=== PATIENT | male | born 1970 | race Caucasian/White ===

== ENCOUNTER 2021-10-05 13:18 | Emergency (ER) | payer OTHER, SELFPAY ==
[2021-10-05 13:22] VITALS: BP 108/72; PULSE 78; RESP 20; TEMP 36.8; O2SAT 97
--- NOTE | 2021-10-05 14:24 | ED.EYEPROB ---
HPI - Eye Problem General Chief complaint: Eye Problems Stated complaint: Eye Problem Time Seen by Provider: 10/05/21 14:18 Source: patient and RN notes reviewed Mode of arrival: ambulatory Limitations: no limitations History of Present Illness HPI Narrative: Patient presents today complaining of right thigh upper eyelid swelling x3 days and believes he has a stye. Denies vision changes or drainage. He currently rates his pain 2/10, which increases with touching the area. He has flushed the area with water. Does not wear glasses or contacts. MD chief complaint: other (Eyelid swelling) Related Data Home Medications Medication Instructions Recorded Confirmed empagliflozin [Jardiance] 10 mg PO DAILY 10/05/21 10/05/21 famotidine 40 mg PO DAILY 10/05/21 10/05/21 lisinopril 5 mg PO DAILY 10/05/21 10/05/21 metformin 500 mg PO BID 10/05/21 10/05/21 Allergies Allergy/AdvReac Type Severity Reaction Status Date / Time No Known Allergies Allergy Unknown Verified 10/05/21 13:36 Review of Systems Review of Systems: CONSTITUTIONAL: Denies body aches, fever, chills, or sweats. EYES: Denies visual changes, redness, or discharge.+ Right upper eyelid redness and swelling ENT: Denies rhinorrhea, congestion, sore throat, or otalgia. CARDIOVASCULAR: Denies chest pain, palpitations, or edema. RESPIRATORY: Denies cough or dyspnea. GASTROINTESTINAL: Denies abdominal pain, nausea, vomiting, or diarrhea. GENITOURINARY: Denies dysuria or hematuria. SKIN: Denies rash, itching, or wounds. MUSCULOSKELETAL: Denies back pain, joint pain, or myalgia. NEUROLOGIC: Denies headache, numbness, tingling, or weakness. PSYCH: Denies depression or anxiety. FORMERLY [facility] Past Medical History Medical History (Updated 10/05/21 @ 14:29 by Katie Banks, TECHNICAL INSTRUCTOR COURSE DEVELOPER, ) Diabetes Hypertension Comments At time of signature, I have reviewed and agree with nursing past medical, surgical, social and family history unless otherwise noted. Please see nursing chart for further information. There is no relevant family history pertinent to the presenting complaint Exam Narrative: GENERAL: Well-appearing, well-nourished, and in no acute distress. HEAD: Normocephalic, atraumatic. EYES: EOMI. PERRL. Conjunctivae normal. Right upper eyelid with mild swelling and erythema. Inside of the eyelid shows a small nodule consistent with stye. Right lower eyelid normal. Lashes normal. Left eye normal. ENT: Mucous membranes pink and moist. NECK: Normal AROM. CHEST: No respiratory distress. EXTREMITIES: Normal range of motion. SKIN: Warm, dry, no rash. Capillary refill normal. Normal skin turgor. NEURO: No focal deficits. Alert and oriented x3. Gait steady. PSYCH: Normal affect. No signs of depression or anxiety. Course Course Level of Care: Express Care Visit Vital Signs Vital signs: Vital Signs Temperature 98.2 F 10/05/21 13:22 Pulse Rate 78 10/05/21 13:22 Respiratory Rate 20 10/05/21 13:22 Blood Pressure 108/72 10/05/21 13:22 Pulse Oximetry 97 10/05/21 13:22 Temperature 98.2 F 10/05/21 13:22 Pulse Rate 78 10/05/21 13:22 Respiratory Rate 20 10/05/21 13:22 Blood Pressure 108/72 10/05/21 13:22 Pulse Oximetry 97 10/05/21 13:22 Reviewed MDM - Eye Problem Differential Diagnosis Differential diagnosis: Likely corneal abrasion, conjunctivitis and periorbital cellulitis Critical Care Time Critical Care Time Critical Care Time: No Discharge Plan Discharge Clinical Impression: Hordeolum internum of right eye Qualifiers: Eyelid: upper Qualified Code(s): H00.021 - Hordeolum internum right upper eyelid Patient Disposition: Home, Self-Care Condition: Stable Instructions: Laya (ED) Additional Instructions: Use antibiotic eyedrops as prescribed. Use warm compresses to the eye to possibly facilitate drainage. Follow-up with an eye doctor towards the end of the week if symptoms are not improving, or sooner if symptom
== END 2021-10-05 14:33 | disposition home or self-care (01) ==
PROVIDERS: Emergency Provider Nurse Practitioner; PCP Nurse Practitioner Family
DX: H00.021 Hordeolum internum right upper eyelid (principal); E11.9 Type 2 diabetes mellitus without complications; I10 Essential (primary) hypertension
CPT/HCPCS: 99213; G0463

== ENCOUNTER 2022-02-12 13:51 | Outpatient (CLI) | payer OTHER, SELFPAY ==
--- NOTE | ~2022-02-12 | MM_ITS ---
EXAMINATION: MM diagnostic mammo BI HISTORY: Gynecomastia TECHNIQUE: MLO, CC and rotated lateral CC views of each breast.. CAD analysis was submitted and inter preted. COMPARISON: None BREAST PARENCHYMAL COMPOSITION: There are scattered areas of fibroglandular density. FINDINGS: Mild bilateral gynecomastia, without evidence of suspicious mass, architectural distortion, malignant calcification, skin thickening or retraction. IMPRESSION: 1. Mild bilateral gynecomastia 2. No recommendations BI-RADS Category 2: Benign Reviewed, dictated and finalized at location A.
== END 2022-02-12 13:52 | disposition home or self-care (01) ==
LOC: ANHIMG 13:52
PROVIDERS: PCP Nurse Practitioner Family; Visit Provider Internal Medicine Endocrinology, Diabetes & Metabolism
DX: N62 Hypertrophy of breast (principal)
CPT/HCPCS: 77066

== ENCOUNTER 2022-10-08 08:07 | Outpatient (CLI) | payer OTHER, SELFPAY ==
[2022-10-08 08:23] LABS: Hematocrit 45.5 % (42.0-52.0); Hemoglobin 14.6 g/dL (14.0-18.0); Mean Corpuscular HGB Conc 32.1 g/dl (32-36); Mean Corpuscular Hemoglobin 27.2 pg (26-34); Mean Corpuscular Volume 84.7 fl (80-100); Mean Platelet Volume 9.7 fl (7.4-10.4); Platelet Count Result 299 k/mm3 (150-375); Red Blood Count 5.37 M/mm3 (4.6-6.20); Red Cell Distribution Width 15.4 % (11.5-14.5); White Blood Count 12.7 K/mm3 (4.5-10.0)
[2022-10-08 08:34] LABS: Alanine Aminotransferase 21 U/L (6-50); Alkaline Phosphatase 85 U/L (38-126); Anion Gap 7 mmol/L (8-16); Aspartate Amino Transferase 21 U/L (17-59); Bilirubin,Total 0.8 mg/dL (0.2-1.3); Blood Urea Nitrogen 16 mg/dL (9-20); Calcium 8.7 mg/dL (8.4-10.2); Carbon Dioxide 28 mmol/L (22-30); Chloride 103 mmol/L (98-107); Cholesterol 169 mg/dL (0-200); Estimated Glomerular Filt Rate > 60; Glucose 113 mg/dL (65-110); HDL Direct 30 mg/dL; Potassium 4.3 mmol/L (3.4-5.0); Sodium 138 mmol/L (137-145); Triglycerides 163 mg/dL (<150)
[2022-10-08 08:44] LABS: LDL Cholesterol Direct 107 mg/dL
[2022-10-08 09:03] LABS: Prostate Specific Antigen 0.4 ng/mL (< OR = 4.0)
[2022-10-12 14:41] LABS: Sex Hormone Binding Globulin 8 nmol/L (10-50)
[2022-10-13 11:28] LABS: Adrenocorticotropic Hormone 13 pg/mL (6-50)
== END 2022-10-08 08:08 | disposition home or self-care (01) ==
LOC: ANHLAB 08:09
PROVIDERS: Visit Provider Internal Medicine Endocrinology, Diabetes & Metabolism
DX: E29.1 Testicular hypofunction (principal)
CPT/HCPCS: 36415; 80053; 80061; 82024; 84153; 84270; 85027; G0103

== ENCOUNTER 2022-11-02 08:43 | Emergency (ER) | payer OTHER, SELFPAY ==
[2022-11-02 08:48] VITALS: BP 125/72; PULSE 71; RESP 20; TEMP 37; O2SAT 97
--- NOTE | 2022-11-02 08:55 | ED.SKABFB ---
HPI - Skin/Abscess/Foreign Bdy General Chief complaint: Skin/Abscess/Foreign Body Stated complaint: left side of neck bite Time Seen by Provider: 11/02/22 08:55 Source: patient Mode of arrival: ambulatory Limitations: no limitations History of Present Illness HPI narrative: Patient is a 51-year-old male who presents with of bite to left neck that have been Tuesday. Unsure what he was bit by. Patient reports mild itching to bite but has not used any creams. Patient was shaving this morning and noticed lymph node by by was swollen. Patient states it was harder this morning than it is at the present time. Patient takes daily Flonase but no other allergy medicine. Patient also reports mild sinus pressure. Denies any fever, chills, headache, joint pain, nausea, vomiting, diarrhea. Related Data Home Medications Medication Instructions Recorded Confirmed empagliflozin 10 mg tablet 10 mg PO DAILY 10/05/21 11/02/22 (Jardiance) lisinopril 5 mg tablet 5 mg PO DAILY 10/05/21 11/02/22 metformin 500 mg tablet 500 mg PO BID 10/05/21 11/02/22 cholecalciferol (vitamin D3) 25 25 mcg PO DAILY 01/21/22 11/02/22 mcg (1,000 unit) capsule melatonin 5 mg capsule 5 mg PO QPM PRN Sleep 01/21/22 11/02/22 multivitamin (Daily Multi-Vitamin 1 tablet PO DAILY 01/21/22 11/02/22 tablet) venlafaxine 37.5 mg tablet 37.5 mg PO DAILY 01/21/22 11/02/22 Allergies Allergy/AdvReac Type Severity Reaction Status Date / Time No Known Allergies Allergy Unknown Verified 11/02/22 08:59 Review of Systems Review of Systems: All systems reviewed & are unremarkable except as noted in HPI and below Constitutional: Constitutional: Denies body ache(s), Denies chills, Denies fatigue, Denies fever(s), Denies headache(s), Denies malaise and Denies weakness Eyes: Eyes: Denies blurry vision, Denies irritation and Denies loss of vision ENT: Denies otalgia, Denies headache(s), Denies nasal discharge, Denies sinus pain and Denies sore throat Cardiovascular: Cardiovascular: Denies chest pain, Denies irregular heart rhythm and Denies dyspnea Respiratory: Respiratory: Denies dyspnea Gastrointestinal: Gastrointestinal: Denies abdominal pain, Denies melena, Denies hematochezia, Denies diarrhea, Denies nausea and Denies vomiting Musculoskeletal: Musculoskeletal: Denies back pain, Denies myalgias and Denies arthralgias Integumentary/Breasts: Skin/Breast: Reports pruritus, Reports lesions and Denies rash Neurologic: Denies headache(s), Denies loss of vision and Denies weakness Psychiatric: Psychiatric: Reports no additional psychiatric complaints Endocrine: Endocrine: Denies fatigue Hematologic/Lymphatic: Hematologic/Lymphatic: Reports lymphadenopathy PMFSH Past Medical History Medical History Gynecomastia Hypertension Hypogonadism in male Testicular torsion Type 2 diabetes mellitus Surgical History Surgical History History of cholecystectomy History of nasal surgery Social History Social History Smoking status: Never smoker Alcohol intake: current Alcohol use details: Rarely Special occasions Substance use: never Comments At time of signature, agree with nursing past medical, surgical, social and family history. There is no relevant family history pertinent to the presenting complaint. Exam Const: General: cooperative, healthy appearing, comfortable, no acute distress and well nourished Nutritional Appearance: well nourished Orientation/consciousness: patient oriented x3 Limitations: no limitations HENMT: Head: normal to inspection, normocephalic and atraumatic Ears: hearing grossly normal bilaterally and external ears normal Face/Nose/Sinus: Normal external nose present, normal facial exam and face symmetric Face and sinus: normal facial exam and fac
== END 2022-11-02 09:05 | disposition home or self-care (01) ==
PROVIDERS: Emergency Provider Nurse Practitioner Family; PCP Nurse Practitioner Family
DX: S10.86XA Insect bite of other specified part of neck, initial encounter (principal); R59.0 Localized enlarged lymph nodes; I10 Essential (primary) hypertension; E11.9 Type 2 diabetes mellitus without complications; W57.XXXA Bitten or stung by nonvenomous insect and other nonvenomous arthropods, initial encounter
CPT/HCPCS: 99211; G0463

== ENCOUNTER 2023-01-20 08:07 | Outpatient (CLI) | payer OTHER, SELFPAY ==
[2023-01-20 11:53] LABS: Iron 64 ug/dL (49-181)
[2023-01-20 12:02] LABS: Percent Iron Saturation 18 % (20-50)
[2023-01-20 12:21] LABS: Cortisol Baseline 9.25 ug/dL
[2023-01-24 04:21] LABS: Sex Hormone Binding Globulin 13 nmol/L (10-50)
[2023-01-24 15:36] LABS: FSH 8.9; LH 4.8
[2023-01-25 08:22] LABS: Testosterone Free 16.4
[2023-01-25 10:43] LABS: Testosterone Total 67
[2023-01-27 22:58] LABS: Estradiol, Ultrasensitive 37 pg/mL (< OR = 29)
== END 2023-01-20 08:08 | disposition home or self-care (01) ==
PROVIDERS: PCP Nurse Practitioner Family; Visit Provider Internal Medicine Endocrinology, Diabetes & Metabolism
DX: E11.9 Type 2 diabetes mellitus without complications (principal); E29.1 Testicular hypofunction; R53.83 Other fatigue; Z68.43 Body mass index [BMI] 50.0-59.9, adult
CPT/HCPCS: 36415; 82533; 82670; 82728; 83001; 83002; 83540; 83550; 84270; 84402; 84403

== ENCOUNTER 2023-03-08 12:36 | Outpatient (CLI) | payer OTHER, SELFPAY ==
--- NOTE | ~2023-03-08 | MR_ITS ---
EXAMINATION: MR pituitary wo/w con DATE: 03/08/2023 13:38 INDICATION: Pituitary adenoma. Low testosterone. TECHNIQUE: Magnetic resonance imaging (MRI) of the brain and brainstem was performed without and with 20 mL MultiHance intravenous contrast. COMPARISON: None. FINDINGS: The pituitary is normal in size with height of 4 mm and concave superior margin. There is n o intracranial hemorrhage, acute infarction, or abnormal intracranial mass lesion. There are scattere d areas of nonspecific increased T2-weighted signal intensity in the cerebral white matter, which is within normal limits for the patient's age. The ventricles are normal in size. There is near complete opacification of left maxillary sinus with material extending into the nasal cavity. The mastoid air cells are normal. The orbits are normal. IMPRESSION: 1. Normal aging brain. Normal pituitary. Reviewed, dictated and finalized at location E.
== END 2023-03-08 12:37 | disposition home or self-care (01) ==
PROVIDERS: PCP Nurse Practitioner Family; Visit Provider Internal Medicine Endocrinology, Diabetes & Metabolism
DX: E29.1 Testicular hypofunction (principal)
CPT/HCPCS: 70553; A9577

== ENCOUNTER 2023-03-25 15:27 | Emergency (ER) | payer OTHER, SELFPAY ==
[2023-03-25 15:31] VITALS: BP 117/74; PULSE 76; RESP 16; TEMP 36.6; O2SAT 98
--- NOTE | 2023-03-25 15:34 | ED.SKABFB ---
HPI - Skin/Abscess/Foreign Bdy General Chief complaint: Skin/Abscess/Foreign Body Stated complaint: rash on legs Source: patient and RN notes reviewed History of Present Illness HPI narrative: 52 yo M presents to urgent care with complaints of an itchy rash to his bilateral lower extremities x 3-4 days. Pt states the itchiness is worse on the right lower leg. Pt states he also noticed 2 spots on his abdomen today. Denies any fevers, chills, chest pain, SOB, vomiting, new medications, detergents, or soaps. Related Data Home Medications Medication Instructions Recorded Confirmed lisinopril 5 mg tablet 5 mg PO DAILY 10/05/21 03/25/23 cholecalciferol (vitamin D3) 25 25 mcg PO DAILY 01/21/22 03/25/23 mcg (1,000 unit) capsule melatonin 5 mg capsule 5 mg PO QPM PRN Sleep 01/21/22 03/25/23 multivitamin (Daily Multi-Vitamin 1 tablet PO DAILY 01/21/22 03/25/23 tablet) venlafaxine 37.5 mg tablet 37.5 mg PO DAILY 01/21/22 03/25/23 Allergies Allergy/AdvReac Type Severity Reaction Status Date / Time No Known Allergies Allergy Unknown Verified 03/25/23 15:39 Review of Systems Review of Systems: CONSTITUTIONAL: Denies fever, chills, or sweats. EYES: Denies visual changes, redness, or discharge. ENT: Denies otalgia and sore throat CARDIOVASCULAR: Denies chest pain, palpitations, or edema. RESPIRATORY: Denies cough or dyspnea. GASTROINTESTINAL: Denies abdominal pain, nausea, vomiting, or diarrhea. GENITOURINARY: Denies dysuria or hematuria. SKIN: itchy rash MUSCULOSKELETAL: Denies back pain, joint pain, or myalgia. NEUROLOGIC: Denies headache, numbness, or weakness. Pertinent positives per HPI. FOR[facility]LY [facility], [facility] Past Medical History Medical History Gynecomastia Hypertension Hypogonadism in male Testicular torsion Type 2 diabetes mellitus Surgical History Surgical History History of cholecystectomy History of nasal surgery Social History Social History Smoking status: Never smoker Alcohol intake: current Alcohol use details: Rarely Special occasions Substance use: never Comments At the time of my signature, I reviewed and agree with the nursing past medical, surgical, social, and family history. There is no relevant family history pertinent to the patient complaint. Exam Narrative: GENERAL: This is a well-nourished, well-developed patient, in no apparent distress. HEAD: normocephalic, atraumatic. EYES: Sclera clear/white. Vision is grossly intact. EARS: External ears normal, auditory canals clear and without drainage. Hearing grossly intact. NOSE: External nose normal with no obvious nasal discharge, nares without redness, no rhinorrhea. THROAT: Mucous membranes moist, posterior pharynx clear. NECK: Neck supple, non-tender without lymphadenopathy, masses or thyromegaly. CARDIOVASCULAR: Regular rate RESPIRATORY: No respiratory distress GASTROINTESTINAL: Abdomen soft, non-tender, nondistended. Bowel sounds are active. No hepato-splenomegaly, or palpable masses. No guarding. SKIN: multiple, fine, erythemic, papules to bilateral lower legs and ankles. Papules vary in size and the two larger ones on sarina right calf have mild erythema surrounding them. No exudate noted. no streaking. NEURO: awake, alert, and oriented to person, place and time. There were no obvious focal neurologic abnormalities. EXTREMITIES: No clubbing, cyanosis, or edema. No joint tenderness, effusion, or edema noted. Course Course Level of Care: Express Care Visit Vital Signs Vital signs: Vital Signs Temperature 97.9 F 03/25/23 15:31 Pulse Rate 76 03/25/23 15:31 Respiratory Rate 16 03/25/23 15:31 Blood Pressure 117/74 03/25/23 15:31 Pulse Oximetry 98 03/25/23 15:31 Oxygen Delivery Room Air 03/25/23 15:31 Temperature 97.9 F
[2023-03-25 15:40] VITALS: BP 117/74; PULSE 76; RESP 16; TEMP 36.6; O2SAT 98
== END 2023-03-25 15:55 | disposition home or self-care (01) ==
PROVIDERS: Emergency Provider Nurse Practitioner Family; PCP Nurse Practitioner Family
DX: L30.9 Dermatitis, unspecified (principal); I10 Essential (primary) hypertension; E11.9 Type 2 diabetes mellitus without complications
CPT/HCPCS: 99213; G0463

== ENCOUNTER 2023-05-23 16:45 | Emergency (ER) | payer OTHER, SELFPAY ==
[2023-05-23 17:04] VITALS: BP 122/75; PULSE 74; RESP 16; TEMP 37.2; O2SAT 97
--- NOTE | 2023-05-23 17:17 | ED.GENADULT ---
HPI - General Adult General Chief complaint: Upper Respiratory Infection Stated complaint: Sinus Infection, Earache Source: patient, RN notes reviewed and old records reviewed Mode of arrival: ambulatory Limitations: no limitations History of Present Illness HPI narrative: 52-year-old male patient presents to Express Care with complaint of left cited sinus congestion, sinus pain, left-sided sinus swelling, left ear pain this started 5 days ago. patient states now has blood tinged nasal drainage. Patient taking [id number] medications with no relief. Patient denies cough, dizziness, weakness, vomiting, chest pain. MD complaint: Sinus congestion Onset (ago): day(s) (5) Related Data Home Medications Medication Instructions Recorded Confirmed lisinopril 5 mg tablet 5 mg PO DAILY 10/05/21 03/25/23 cholecalciferol (vitamin D3) 25 25 mcg PO DAILY 01/21/22 03/25/23 mcg (1,000 unit) capsule melatonin 5 mg capsule 5 mg PO QPM PRN Sleep 01/21/22 03/25/23 multivitamin (Daily Multi-Vitamin 1 tablet PO DAILY 01/21/22 03/25/23 tablet) venlafaxine 37.5 mg tablet 37.5 mg PO DAILY 01/21/22 03/25/23 Allergies Allergy/AdvReac Type Severity Reaction Status Date / Time No Known Allergies Allergy Unknown Verified 05/23/23 16:58 Review of Systems Constitutional: Constitutional: Reports no additional constitutional complaints, Denies body ache(s), Denies chills, Denies fatigue, Denies fever(s) and Reports headache(s) Eyes: Eyes: Reports no additional eye complaints and Denies blurry vision ENT: Reports system reviewed and no additional complaints, except as documented, Denies vertigo, Denies dizziness, Denies ear discharge, Reports otalgia, Denies facial pain, Denies headache(s), Reports nasal congestion, Reports nasal discharge, Reports sinus pain, Reports sinus pressure and Denies sore throat Cardiovascular: Cardiovascular: Reports no additional cardiovascular complaints, Denies chest pain, Denies chest pain at rest, Denies rapid heart rate and Denies dyspnea Respiratory: Respiratory: Reports no additional respiratory complaints, Denies chest congestion, Denies cough, Denies pain on inspiration, Denies pain with cough and Denies dyspnea Gastrointestinal: Gastrointestinal: Denies abdominal pain, Denies diarrhea, Denies nausea and Denies vomiting Integumentary/Breasts: Skin/Breast: Denies rash Neurologic: Reports system reviewed and no additional complaints, except as documented, Denies vertigo, Denies dizziness and Denies headache(s) Endocrine: Endocrine: Denies fatigue PMFSH Past Medical History Medical History Gynecomastia Hypertension Hypogonadism in male Testicular torsion Type 2 diabetes mellitus Surgical History Surgical History History of cholecystectomy History of nasal surgery Social History Social History Smoking status: Never smoker Alcohol intake: current Alcohol use details: Rarely Special occasions Substance use: never Comments At the time of my signature, I reviewed and agree with the nursing past medical, surgical, social, and family history. There is no relevant family history pertinent to the patient complaint. Exam Const: General: cooperative, healthy appearing, no acute distress and well nourished Nutritional Appearance: well nourished Orientation/consciousness: patient oriented x3 Limitations: no limitations HENMT: Head: normal to inspection and normocephalic Ears: external ears normal, TM's normal bilaterally, mastoids normal and Abnormal EAC present Face/Nose/Sinus: Normal nasal mucous membranes and turbinates present ( right-side), Abnormal mucous membranes and turbinates present boggy on the left and erythematous on the left, normal facial exam and Facial tenderness on exam of face and sinuses ( left maxillary si
== END 2023-05-23 17:33 | disposition home or self-care (01) ==
PROVIDERS: Emergency Provider Registered Nurse; PCP Nurse Practitioner Family
DX: J01.90 Acute sinusitis, unspecified (principal); B96.89 Other specified bacterial agents as the cause of diseases classified elsewhere; I10 Essential (primary) hypertension; E11.9 Type 2 diabetes mellitus without complications
CPT/HCPCS: 99213; G0463

== ENCOUNTER 2023-05-26 07:23 | Outpatient (CLI) | payer OTHER, SELFPAY ==
[2023-05-26 08:05] LABS: Hematocrit 45.1 % (42.0-52.0)
[2023-05-30 12:43] LABS: Testosterone Total 301 ng/dL (250-1100)
[2023-05-30 15:12] LABS: Testosterone Free 78.8 pg/mL (46.0-224.0)
== END 2023-05-26 07:24 | disposition home or self-care (01) ==
LOC: ANHLAB 07:25
PROVIDERS: PCP Nurse Practitioner Family; Visit Provider Internal Medicine Endocrinology, Diabetes & Metabolism
DX: N62 Hypertrophy of breast (principal)
CPT/HCPCS: 36415; 84402; 84403; 85014; 85018

== ENCOUNTER 2023-11-10 07:56 | Outpatient (CLI) | payer OTHER, SELFPAY ==
[2023-11-10 11:18] LABS: Iron 78 ug/dL (49-181)
[2023-11-10 11:28] LABS: Percent Iron Saturation 21 % (20-50)
[2023-11-10 11:56] LABS: Transferrin 259 mg/dL (206-381)
[2023-11-10 12:19] LABS: Prostate Specific Antigen 0.7 ng/mL (< OR = 4.0)
[2023-11-11 13:03] LABS: Microalbumin Urine Random 7.3 mg/L (0-16.7)
[2023-11-11 13:14] LABS: Creatinine Urine 134.1 mg/dL; MALB Creatinine Ratio 5.4 mg/g (0-30)
[2023-11-13 22:44] LABS: Testosterone Total 280 ng/dL (250-1100)
[2023-11-14 17:28] LABS: Testosterone Free 76.8 pg/mL (46.0-224.0)
== END 2023-11-10 07:57 | disposition home or self-care (01) ==
LOC: ANHLAB 07:57
PROVIDERS: PCP Nurse Practitioner Family; Visit Provider Internal Medicine Endocrinology, Diabetes & Metabolism
DX: R79.0 Abnormal level of blood mineral (principal); E29.1 Testicular hypofunction; E11.9 Type 2 diabetes mellitus without complications
CPT/HCPCS: 36415; 82043; 83540; 83550; 84153; 84402; 84403; 84466; G0103

== ENCOUNTER 2024-08-16 07:50 | Outpatient (CLI) | payer OTHER, SELFPAY ==
--- OUTSIDE RECORDS SUMMARY | 2024-08-16 07:54 | XMS_ITS | Clinical Summary ---
Author Organization [facility] Address [address] [place] [address] Care Team Providers Care Card Tender Name Role Phone Brielle Garcia JOYCELYN Primary Care Provider [phone] Source Comments [facility],non-owned Affiliates and Associated Physician Practices is amultiple site organization consisting of ambulatory clinics and hospital sitesin [place], [place], [place] and [place]. This disclosure is being madepursuant to the Care Everywhere program and may not contain all information available regarding this patient. Last updated 18.[facility] Allergies No known active allergies Medications * Be aware that medications may not be up to date on this document. Alwaysverify current medications with the patient. Medication Sig Dispensed Refills Start Date End Date Status melatonin 3 MG tablet Take 3 mg by mouth at bedtime Active raNITIdine (ZANTAC) 75 MG tablet Take 75 mg by mouth at bedtime Active Blood Glucose Monitoring Suppl (ONE TOUCH ULTRA 2) w/Device KIT Use 1 kit as directed 1 kit 10/03/2018 Active blood glucose test strip Use 1 strip 2 times daily 100 strip 11 10/03/2018 Active metFORMIN (GLUCOPHAGE) 500 MG tablet Take 1 tablet by mouth 2 times daily with morning and evening meal 180 tablet 4 10/03/2018 Active lisinopril (PRINIVIL;ZESTRIL) 5 MG tablet Take 5 mg by mouth once daily Active Active Problems Problem Noted Date Diagnosed Date S/P laparoscopic cholecystectomy 10/19/2018 Resolved Problems Problem Noted Date Diagnosed Date Resolved Date Acute pancreatitis 09/22/2018 9 Family History Medical History Relation Name Comments Diabetes - Type 2 Father Gout Father Brain Tumor Mother Benign Relation Name Status Comments Father Mother Social History Tobacco Use Types Packs/Day Years Used Date Smoking Tobacco: Never Smokeless Tobacco: Never Tobacco Cessation:Counseling Given: No Alcohol Use Standard Drinks/Week Comments Yes 1 (1 standard drink = 0.6 oz pur e alcohol) 1 drink every six months Sex and Gender Information Value Date Recorded Sex Assigned at Not on file Gender Identity Not on file Sexual Orientation Not on file Last Filed Vital Signs Vital Sign Reading Time Taken Comments Blood Pressure 154/91 10/18/2018 2:27 PM CDT Pulse 98 10/18/2018 2:27 PM CDT Temperature 36.4 C (97.6 F) 10/18/2018 2:27 PM CDT Respiratory Rate 18 10/03/2018 11:19 AM CDT Oxygen Saturation 95% 10/18/2018 2:27 PM CDT Inhaled Oxygen Concentration 21% 09/27/2018 3 :40 PM CDT Weight 195.5 kg (431 lb) 10/18/2018 2:27 PM CDT Height 182.9 cm (6') 10/18/2018 2:27 PM CDT Body Mass Index 58.45 10/18/2018 2:27 PM CDT Plan of Treatment Health Maintenance Due Date Last Done Comments COLOGUARD (AGES 45-75) - COLON CA SCREENING 1970 COLON MONITORING 1970 COLONOSCOPY - COLON CA SCREENING 1970 CT COLONOGRAPHY - COLON CA SCREENING 1970 Colorectal Cancer Screening 1970 FIT - COLON CA SCREENING 1970 FLEX SIG - COLON CA SCREENING 1970 LIPID TESTING 1970 HIV SCREENING 1985 HEPATITIS C SCREENING 11/16/1988 DTAP/TDAP/TD VACCINES (1 - Tdap) 1989 HEPATITIS B VACCINE (1 of 3 - 19+ 3-dose series) 1989 PNEUMOCOCCAL VACCINE 50+ (1 of 1 - PCV) 2020 ZOSTER VACCINE (1 of 2) 2020 SCREENING FOR DIABETES 10/03/2021 9, 10/03/2018, 10/03/2018, Additional history exists COVID-19 VACCINE (1 - 2023- season) 2024 INFLUENZA VACCINE (#1) 2024 DEPRESSION SCREENING 06/06/2024 HIB VACCINE Aged Out No longer eligi ble based on patient's age to complete this topic HPV VACCINE Aged Out No longer eligi ble based on patient's age to complete this topic MENINGOCOCCAL (Group B) VACCINE SHARED DECISION-MAKING Aged Out No longer eligible based on patient's age to complete this topic MENINGOCOCCAL GROUPS A/C/Y/W VACCINE Aged Out No longer eligible based on patient's age to complete this topic PNEUMOCOCCAL VACCINE Aged Out No long er eligible based on patient's age to complete this topic Procedures Procedure Name Priority Date/Time Associated Diagnosis Comments BASIC METABOLIC PANEL (CALCIUM TOTAL) Routine 10/03/2018 5:29 AM CDT from Last 3 Months or Most Recently Relevant to Health Maintenance Results * (ABNORMAL) BASIC METABOLIC PANEL (CALCIUM TOTAL) (10/03/2018 5:29 AM CDT) BUN 8 7 - 26 mg/dL 10/03/2018 6:12 AM [facility] Creatinine 0.8 0.6 - 1.2 mg/dL 10/03/2018 6:12 AM [facility] Sodium 138 136 - 145 mmol/L 10/03/2018 6:12 AM [facility] Potassium 3.9 3.5 - 4.5 mmol/L 10/03/2018 6:12 AM [facility] Chloride 101 98 - 107 mmol/L 10/03/2018 6:12 AM [facility] CO2 27 22 - 29 mmol/L 10/03/2018 6:12 AM [facility] Glucose 156(H) 70 - 115 mg/dL 10/03/2018 6:12 AM [facility] Calcium 9.0 8.4 - 10.2 mg/dL 10/03/2018 6:12 AM [facility] Anion Gap 14 8 - 18 10/03/2018 6:12 AM [facility] BUN/Creatinine Ratio 10 7 - 23 10/03/2018 6:12 AM [facility] Osmolality Calculated 288 270 - 300 mOsm/kg 10/03/2018 6:12 AM [facility] eGFR >60 >60 mL/min/1.7 3 m2 10/03/2018 6:12 AM CDT [facility] Blood BLOOD SPECIMEN / Unknown Lab Venipuncture / Unknown 10/03/2018 5:29 AM CDT 10/03/2018 5:54 AM CDT Loco Burroughs MD LAB - CHEMISTRY EILEEN Bourgeois Organization Address City/State/ZIP Co de Phone Number [facility] [address] [phone] from Last 3 Months or Most Recently Relevant to Health Maintenance Advance Directives * Full Code (Latest Code Status on File) Date Activated Date Inactivated Comments 09/22/2018 9:05 PM 10/03/2018 2:50 PM * Full Code Date Activated Date Inactivated Comments 09/22/2018 9:02 PM 09/22/2018 9:05 PM Care Teams Card Tender Relationship Specialty Start Date End Date Brielle Garcia APRN-CNP [address] [place] [address] PCP - General Nurse Practitioner Family 09/22/18
--- OUTSIDE RECORDS SUMMARY | 2024-08-16 07:54 | XMS_ITS | Clinical Summary ---
Author Organization [facility] Address [address] [place] [address] Phone Care Team Providers Care Audio Visual Tech Name Role Phone Garcia Brielle VO CNP Primary Care Provider [phone] [phone] Allergies No known active allergies Medications metroNIDAZOLE (FLAGYL) 500 MG Tablet Take 1 Tab by mouth 3 times daily. 30 Tab 09/13/2018 Active ondansetron (ZOFRAN) 4 MG Tablet Take 1 Tab by mouth every 8 hours as needed for Nausea - 1st line. 10 Tab 09/13/2018 Active HYDROcodone-shima taminophen (NORCO) 5-325 MG Tablet Take 1 Tab by mouth every 6 hours as needed for Moderate or more severe pain. 20 Tab 09/13/2018 Active raNITIdine (ZANTAC) 150 MG Tablet Take 75 mg by mouth nightly. Active melatonin 3 MG Tablet Take 3 mg by mouth nightly. Active lisinopril (PRINIVIL, ZESTRIL) 5 MG Tablet Take 5 mg by mouth daily. Active Empagliflozin (Jardiance) 10 MG Tablet Take 10 mg by mouth daily. Active metFORMIN (GLUCOPHAGE) 500 MG Tablet Take 500 mg by mouth 2 times daily (with meals). Active Active Problems Problem Noted Date Diagnosed Date Type 2 diabetes mellitus 05/20/2021 Morbid obesity 05/20/2021 Gastroesophageal reflux disease without esophagi tis 05/20/2021 Elevated blood pressure read ing without diagnosis of hypertension 05/20/2021 Mood swings 05/20/2021 Immunizations Immunization Administration Dates Next Due TDAP Vaccine 11/02/2018,11/09/2006 Family History Medical History Relation Name Comments Diabetes Father Skin Cancer Father Elevated Lipids Mother Diabetes Paternal Grandfather Relation Name Status Comments Father Mother Paternal Grandfather Social History Tobacco Use Types Packs/Day Years Used Date Smoking Tobacco: Never Smokeless Tobacco: Never Alcohol Use Standard Drinks/Week Comments Yes 0 (1 standard drink = 0.6 oz pur e alcohol) occassionally Sex and Gender Information Value Date Recorded Sex Assigned at Not on file Legal Sex Male 11:53 PM CDT Gender Identity Not on file Sexual Orientation Not on file Last Filed Vital Signs Vital Sign Reading Time Taken Comments Blood Pressure 142/89 09/22/2018 7:05 PM CDT Pulse 105 09/22/2018 7:05 PM CDT Temperature 36.7 C (98 F) 09/22/2018 7:05 PM CDT Respiratory Rate 16 09/22/2018 7:05 PM CDT Oxygen Saturation 92% 09/22/2018 7:05 PM CDT Inhaled Oxygen Concentration - - Weight 204.1 kg (450 lb) 09/22/2018 11:58 AM CDT Height 182.9 cm (6') 09/22/2018 11:58 AM CDT Body Mass Index 61.03 09/22/2018 11:58 AM CDT Plan of Treatment Health Maintenance Due Date Last Done Comments Diabetes: Eye Exam 1970 Diabetes: Foot Exam 1970 Diabetes: Hemoglobin A1c 1970 Hepatitis C Virus (HCV) Screening 1970 Pneumococcal Immunization Combined (1 of 2 - PCV) 1976 Hepatitis B Immunization (1 of 3 - 19+ 3-dose series) 1989 Pneumococcal Immunization (5 0+ years) (1 of 2 - PCV) 1989 Colonoscopy 11/22/2015 Colorectal Cancer Screening 11/22/2015 Diabetes: Nephropathy Screening 09/23/2019 09/22/2018, 09/13/2018 Cologuard 2020 Immunochemical Fecal Occult Blood 2020 Zoster Immunization (1 of 2) 2020 Influenza Immunization (#1) 2024 SARS-COV-2 Immunization (3 - 2023-25 season) 2024 05/07/2021, 08/09/2020 Respiratory Syncytial Virus (RSV) Immunization (Adult) (1 - 1-dose 75+ series) 2045 DTaP/Tdap/Td Immunization Discontinued 2018, 11/09/2006 Meningococcal Immunization (ACWY) Aged Out No longer eligible based on patient's age to complete this topic Rotavirus Immunization Aged Out No lo nger eligible based on patient's age to complete this topic Procedures Procedure Name Priority Date/Time Associated Diagnosis Comments CMP (COMPREHENSIVE METABOLIC PANEL) STAT 09/22/2018 12:15 PM CDT from Last 3 Months or Most Recently Relevant to Health Maintenance Results * (ABNORMAL) CMP (Comprehensive Metabolic Panel) (09/22/2018 12:15 PM CDT) SODIUM 127(L) 136 - 144 mmol/L 09/22/2018 1:11 PM CDT [facility] POTASSIUM 3.9 3.5 - 5.1 mmol/L 09/22/2018 1:11 PM CDT [facility] CHLORIDE 89(L) 100 - 110 mmol/L 09/22/2018 1:11 PM CDT [facility] CO2, VENOUS 23 22 - 32 mmol/L 09/22/2018 1:11 PM CDT [facility] ANION GAP 18.9 8.0 - 20.0 mmol/L 09/22/2018 1:11 PM CDT [facility] GLUCOSE 325(H) 70 - 99 mg/dL 09/22/2018 1:11 PM CDT [facility] BUN 15 6 - 20 mg/dL 09/22/2018 1:11 PM CDT [facility] CREATININE, BLOOD 0.25(L) 0.80 - 1.30 mg/dL 09/22/2018 1:11 PM CDT [facility] BUN/CREATININE RATIO 60(H) 12 - 20 ratio 09/22/2018 1:11 PM CDT [facility] TOTAL PROTEIN 7.7 6.0 - 8.3 g/dL 09/22/2018 1:11 PM CDT [facility] ALBUMIN 3.1(L) 3.5 - 5.2 g/dL 09/22/2018 1:11 PM CDT [facility] Comment: The colormetric methods used for the determination of Albumin may lead to falsely elevated test results in patients suffering from renal failure or insufficiency due to interference with other proteins. A/G RATIO 0.7(L) 1.0 - 2.0 09/22/2018 1:11 PM CDT [facility] CALCIUM 9.2 8.9 - 10.3 mg/dL 09/22/2018 1:11 PM CDT [facility] T BILI 16.6(HH) <=1.2 mg/dL 09/22/2018 1:11 PM CDT [facility] SGOT (AST) 164(H) <=40 U/L 09/22/2018 1:11 PM CDT [facility] SGPT (ALT) 149(H) <=41 U/L 09/22/2018 1:11 PM CDT [facility] ALKALINE PHOSPHATASE 795(H) 40 - 130 U/L 09/22/2018 1:11 PM CDT [facility] GFR, EST. NONAFRICAN >60 >=60 09/22/2018 1:11 PM CDT [facility] GFR, EST. >60 >=60 019 1:11 PM CDT [facility] Comment: Creatinine Clearance is the preferred criteria for selecting drug dose adjustments in renally impaired patients. The GFR is provided as additional pertinent clinical information. GFR is reported in mL/min/1.73 sq m. Blood specimen (specimen) Venous Catheter (IV) / Unknown 09/22/2018 12:15 PM CDT 09/22/2018 12:28 PM CDT Chan Hernandez MD CHEMISTRY ORDERABLES Final Result [facility] [address] [place] [address] from Last 3 Months or Most Recently Relevant to Health Maintenance Insurance [employer]ICAID [employer] Care Teams Audio Visual Tech Relationship Specialty Start Date End Date Brielle Garcia APRN, [employer] [address] [place] [address] PCP - General Family Medicine 05/20/21
--- OUTSIDE RECORDS SUMMARY | 2024-08-16 07:54 | XMS_ITS | Referral Summary ---
Author Organization [facility] Address [address] [place] [address] Care Team Providers Care Dressing Room Porter Name Role Phone Brielle Garcia JOYCELYN Primary Care Provider [phone] Source Comments [facility],non-owned Affiliates and Associated Physician Practices is amultiple site organization consisting of ambulatory clinics and hospital sitesin [place], [place], [place] and [place]. This disclosure is being madepursuant to the Care Everywhere program and may not contain all information available regarding this patient. Last updated 18.[facility] Allergies No known active allergies Medications * [...] Date Resolved Date Acute pancreatitis 09/22/2018 9 Social History Tobacco Use Types Packs/Day Years [...] Mass Index 58.45 10/18/2018 2:27 PM CDT Functional Status Functional Status Response Date of Assess ment Is person deaf or have serious hearing difficult y? No 10/03/2018 Is person blind or have serious difficulty seein g? No 10/03/2018 Does person have serious dif ficulty walking/climbing stairs? No 10/03/2018 Does person have difficulty dressing/bathing? No 10/03/2018 Does person have difficulty doing errands alone? No 10/03/2018 Cognitive Status Response Date of Assessm ent Does person have difficulty concentrating/remembering/making decisions? No 10/03/2018 Plan of Treatment Not on file Procedures Procedure Name Priority Date/Time Associated Diagnosis Comments BASIC METABOLIC PANEL (CALCIUM TOTAL) Routine 10/03/2018 5:29 AM CDT from Last 3 Months or Most Recently Relevant to Health Maintenance Results * (ABNORMAL) BASIC METABOLIC PANEL (CALCIUM TOTAL) (10/03/2018 5:29 AM CDT) BUN 8 7 - 26 mg/dL 10/03/2018 6:12 AM CDT [facility] Creatinine 0.8 0.6 - 1.2 mg/dL 10/03/2018 6:12 AM CDT [facility] Sodium 138 136 - 145 mmol/L 10/03/2018 6:12 AM [facility] Potassium 3.9 3.5 - 4.5 mmol/L 10/03/2018 6:12 AM [facility] Chloride 101 98 - 107 mmol/L 10/03/2018 6:12 AM [facility] CO2 27 22 - 29 mmol/L 10/03/2018 6:12 AM [facility] Glucose 156(H) 70 - 115 mg/dL 10/03/2018 6:12 AM [facility] Calcium 9.0 8.4 - 10.2 mg/dL 10/03/2018 6:12 AM [facility] Anion Gap 14 8 - 18 10/03/2018 6:12 AM [facility] BUN/Creatinine Ratio 10 7 - 23 10/03/2018 6:12 AM [facility] Osmolality Calculated 288 270 - 300 mOsm/kg 10/03/2018 6:12 AM [facility] eGFR >60 >60 mL/min/1.7 3 m2 10/03/2018 6:12 AM [facility] Blood BLOOD SPECIMEN / Unknown Lab Venipuncture / Unknown 10/03/2018 5:29 AM CDT 10/03/2018 5:54 AM [facility] Loco Burroughs MD LAB - CHEMISTRY [facility] Organization Address City/State/[facility] Co de Phone Number [facility] [address] [phone] from Last 3 Months or Most Recently Relevant to Health Maintenance Advance Directives * Full Code (Latest Code Status on File) Date Activated Date Inactivated Comments 09/22/2018 9:05 PM 10/03/2018 2:50 PM * Full Code Date Activated Date Inactivated Comments 09/22/2018 9:02 PM 09/22/2018 9:05 PM Care Teams Dressing Room Porter Relationship Specialty Start Date End Date Brielle Garcia APRN-KASSY [address] [place] [address] PCP - General Nurse Practitioner Family 09/22/18
--- OUTSIDE RECORDS SUMMARY | 2024-08-16 07:54 | XMS_ITS | Patient Health Summary ---
Author Organization [facility] Address [address] [place] [address] Care Team Providers Care Scalp Specialist Name Role Phone Brielle Garcia JOYCELYN Primary Care Provider [phone] Note from [facility],non-owned Affiliates and Associated Physician Practices is amultiple site organization consisting of ambulatory clinics and hospital sitesin [place], [place], [place] and [place]. This disclosure is being madepursuant to the Care Everywhere program and may not contain all information available regarding this patient. Last updated 18.[facility] Allergies No known active allergies Medications * Be aware that medications may not be up to date on this document. Alwaysverify current medications with the patient. * melatonin 3 MG tablet Take 3 mg by mouth at bedtime * raNITIdine (ZANTAC) 75 MG tablet Take 75 mg by mouth at bedtime * Blood Glucose Monitoring Suppl (ONE TOUCH ULTRA 2) w/Device KIT(Started 10/03/2018) Use 1 kit as directed * blood glucose test strip(Started 10/03/2018) Use 1 strip 2 times daily 11 refills remaining * metFORMIN (GLUCOPHAGE) 500 MG tablet(Started 10/03/2018) Take 1 tablet by mouth 2 times daily with morning and evening meal 4 refills remaining * lisinopril (PRINIVIL;ZESTRIL) 5 MG tablet Take 5 mg by mouth once daily Active Problems Problem Noted Date Diagnosed Date [...] Mass Index 58.45 10/18/2018 2:27 PM CDT Procedures * CARDIAC EKG ORDER(Performed 10/09/2018) * CARDIAC EKG ORDER(Performed 10/06/2018) * GLUCOSE - POINT OF CARE(Performed 10/03/2018) * GLUCOSE - POINT OF CARE(Performed 10/03/2018) * HEPATIC FUNCTION PANEL(Performed 10/03/2018) * BASIC METABOLIC PANEL (CALCIUM TOTAL)(Performed 10/03/2018) * CBC W/O DIFFERENTIAL(Performed 10/03/2018) * GLUCOSE - POINT OF CARE(Performed 10/02/2018) * GLUCOSE - POINT OF CARE(Performed 10/02/2018) * GLUCOSE - POINT OF CARE(Performed 10/02/2018) * GLUCOSE - POINT OF CARE(Performed 10/02/2018) * HEPATIC FUNCTION PANEL(Performed 10/02/2018) * BASIC METABOLIC PANEL (CALCIUM TOTAL)(Performed 10/02/2018) * CBC W/O DIFFERENTIAL(Performed 10/02/2018) * GLUCOSE - POINT OF CARE(Performed 10/01/2018) * GLUCOSE - POINT OF CARE(Performed 10/01/2018) * GLUCOSE - POINT OF CARE(Performed 10/01/2018) * PATHOLOGY TISSUE(Performed 10/01/2018) Performed for Gallstone pancreatitis (HCC) * LAPAROSCOPIC CHOLECYSTECTOMY(Performed 10/01/2018) Performed for Gallstone pancreatitis (HCC) * ENDOTRACHEAL TUBE NOTE(Performed 10/01/2018) * GLUCOSE - POINT OF CARE(Performed 10/01/2018) * HEPATIC FUNCTION PANEL(Performed 10/01/2018) * BASIC METABOLIC PANEL (CALCIUM TOTAL)(Performed 10/01/2018) * CBC W/O DIFFERENTIAL(Performed 10/01/2018) * GLUCOSE - POINT OF CARE(Performed 09/30/2018) * GLUCOSE - POINT OF CARE(Performed 09/30/2018) * GLUCOSE - POINT OF CARE(Performed 09/30/2018) * GLUCOSE - POINT OF CARE(Performed 09/30/2018) * TYPE + SCREEN PANEL(Performed 09/30/2018) * PT-INR [facility](Performed 09/30/2018) * HEPATIC FUNCTION PANEL(Performed 09/30/2018) * BASIC METABOLIC PANEL (CALCIUM TOTAL)(Performed 09/30/2018) * CBC W/O DIFFERENTIAL(Performed 09/30/2018) * GLUCOSE - POINT OF CARE(Performed 09/29/2018) * GLUCOSE - POINT OF CARE(Performed 09/29/2018) * GLUCOSE - POINT OF CARE(Performed 09/29/2018) * GLUCOSE - POINT OF CARE(Performed 09/29/2018) * GLUCOSE - POINT OF CARE(Performed 09/29/2018) * HEPATIC FUNCTION PANEL(Performed 09/29/2018) * BASIC METABOLIC PANEL (CALCIUM TOTAL)(Performed 09/29/2018) * CBC W/O DIFFERENTIAL(Performed 09/29/2018) * GLUCOSE - POINT OF CARE(Performed 09/29/2018) * GLUCOSE - POINT OF CARE(Performed 09/28/2018) * GLUCOSE - POINT OF CARE(Performed 09/28/2018) * GLUCOSE - POINT OF CARE(Performed 09/28/2018) * GLUCOSE - POINT OF CARE(Performed 09/28/2018) * HEPATIC FUNCTION PANEL(Performed 09/28/2018) * BASIC METABOLIC PANEL (CALCIUM TOTAL)(Performed 09/28/2018) * GLUCOSE - POINT OF CARE(Performed 09/28/2018) * CBC W/O DIFFERENTIAL(Performed 09/28/2018) * GLUCOSE - POINT OF CARE(Performed 09/28/2018) * GLUCOSE - POINT OF CARE(Performed 09/27/2018) * GLUCOSE - POINT OF CARE(Performed 09/27/2018) * GLUCOSE - POINT OF CARE(Performed 09/27/2018) * FL REECE SURGERY(Performed 09/27/2018) Performed for Acute pancreatitis, unspecified complication status, unspecified pancreatitis type (HCC) * PERIPHERAL IV NOTE(Performed 09/27/2018) * ENDOTRACHEAL TUBE NOTE(Performed 09/27/2018) * ENDOSCOPIC RETROGRADE CHOLANGIOPANCREATOGRAPHY (ERCP)(Performed 09/27/2018) Performed for Deferred diagnosis on axis I * ERCP(Performed 09/27/2018) * GLUCOSE - POINT OF CARE(Performed 09/27/2018) * GLUCOSE - POINT OF CARE(Performed 09/27/2018) * GLUCOSE - POINT OF CARE(Performed 09/27/2018) * HEPATIC FUNCTION PANEL(Performed 09/27/2018) * BASIC METABOLIC PANEL (CALCIUM TOTAL)(Performed 09/27/2018) * CBC W/O DIFFERENTIAL(Performed 09/27/2018) * GLUCOSE - POINT OF CARE(Performed 09/27/2018) * GLUCOSE - POINT OF CARE(Performed 09/27/2018) * GLUCOSE - POINT OF CARE(Performed 09/26/2018) * GLUCOSE - POINT OF CARE(Performed 09/26/2018) * GLUCOSE - POINT OF CARE(Performed 09/26/2018) * GLUCOSE - POINT OF CARE(Performed 09/26/2018) * HEPATIC FUNCTION PANEL(Performed 09/26/2018) * BASIC METABOLIC PANEL (CALCIUM TOTAL)(Performed 09/26/2018) * CBC W/O DIFFERENTIAL(Performed 09/26/2018) * GLUCOSE - POINT OF CARE(Performed 09/26/2018) * GLUCOSE - POINT OF CARE(Performed 09/25/2018) * GLUCOSE - POINT OF CARE(Performed 09/25/2018) * GLUCOSE - POINT OF CARE(Performed 09/25/2018) * GLUCOSE - POINT OF CARE(Performed 09/25/2018) * ECHO COMPLETE(Performed 09/25/2018) Performed for Acute pancreatitis, unspecified complication status, unspecified pancreatitis type (HCC) * GLUCOSE - POINT OF CARE(Performed 09/25/2018) * PT-INR [facility](Performed 09/25/2018) * HEPATIC FUNCTION PANEL(Performed 09/25/2018) * BASIC METABOLIC PANEL (CALCIUM TOTAL)(Performed 09/25/2018) * CBC W/O DIFFERENTIAL(Performed 09/25/2018) * GLUCOSE - POINT OF CARE(Performed 09/25/2018) * GLUCOSE - POINT OF CARE(Performed 09/24/2018) * GLUCOSE - POINT OF CARE(Performed 09/24/2018) * HEPATIC FUNCTION PANEL(Performed 09/24/2018) * GLUCOSE - POINT OF CARE(Performed 09/24/2018) * BASIC METABOLIC PANEL (CALCIUM TOTAL)(Performed 09/24/2018) * CBC W/O DIFFERENTIAL(Performed 09/24/2018) * GLUCOSE - POINT OF CARE(Performed 09/24/2018) * GLUCOSE - POINT OF CARE(Performed 09/24/2018) * GLUCOSE - POINT OF CARE(Performed 09/24/2018) * GLUCOSE - POINT OF CARE(Performed 09/23/2018) * GLUCOSE - POINT OF CARE(Performed 09/23/2018) * GLUCOSE - POINT OF CARE(Performed 09/23/2018) * GLUCOSE - POINT OF CARE(Performed 09/23/2018) * GGT(Performed 09/23/2018) * GLUCOSE - POINT OF CARE(Performed 09/23/2018) * HEMOGLOBIN A1C(Performed 09/23/2018) * TRIGLYCERIDES BLOOD(Performed 09/23/2018) * PHOSPHORUS BLOOD(Performed 09/23/2018) * MAGNESIUM BLOOD(Performed 09/23/2018) * CBC W/O DIFFERENTIAL(Performed 09/23/2018) * COMPREHENSIVE METABOLIC PANEL(Performed 09/23/2018) * GLUCOSE - POINT OF CARE(Performed 09/23/2018) * GLUCOSE - POINT OF CARE(Performed 09/22/2018) * CULTURE BLOOD(Performed 09/22/2018) * URINALYSIS REFLEX TO MICROSCOPIC NO CULTURE(Performed 09/22/2018) * CULTURE URINE(Performed 09/22/2018) * XR CHEST 1VW PORTABLE(Performed 09/22/2018) Performed for Acute pancreatitis, unspecified complication status, unspecified pancreatitis type (HCC) * PT-INR [facility](Performed 09/22/2018) * LACTIC ACID BLOOD(Performed 09/22/2018) * CULTURE BLOOD(Performed 09/22/2018) * PHOSPHORUS BLOOD(Performed 09/22/2018) * MAGNESIUM BLOOD(Performed 09/22/2018) * LIPASE BLOOD(Performed 09/22/2018) * CBC W AUTO DIFFERENTIAL(Performed 09/22/2018) * COMPREHENSIVE METABOLIC PANEL(Performed 09/22/2018) * EKG 12-LEAD(Performed 09/22/2018) Performed for Acute pancreatitis, unspecified complication status, unspecified pancreatitis type (HCC) * STREP A SCREEN - POINT OF CARE (AMB) STL(Performed 11/09/2016) Performed for Strep throat Results * CARDIAC EKG ORDER (10/09/2018 10:49 AM CDT) Only the most recent of2 resultswithin the time period is included. Narrative 10/09/2018 10:49 AM CDT Ordered by an unspecified provider. Scanned Document CARDIAC SERVICES ORD ERABLES * (ABNORMAL) GLUCOSE - POINT OF CARE (10/03/2018 11:19 AM CDT) Only the most recent of58 resultswithin the time period is included. [facility] Glucose WB/POC 159(H) 70 - 115 mg/dL 10/03/2018 11:[address] [facility] Specimen Type Arterial/C apillary 10/03/2018 11:[address] [facility] Blood BLOOD SPECIMEN / Unknown 10/03/2018 11:19 AM CDT 10/03/2018 11:[address] [facility] - 10/03/2018 11:36 AM CDT PATIENT SUPPORT ASSOCIATE: GANESH ESPOSITO Loco Burroughs MD LAB - POINT OF CARE ORDERABLES [address] [phone] * (ABNORMAL) CBC W/O DIFFERENTIAL (10/03/2018 5:29 AM CDT) Only the most recent of11 resultswithin the time period is included. [facility] WBC 7.8 3.5 - 10.5 10 3/uL 10/03/2018 6:[address] [facility] RBC 3.83(L) 4.30 - 5.70 10 6/uL 10/03/2018 6:[address] [facility] Hemoglobin 10.5(L) 13.5 - 17.5 g/dL 10/03/2018 6:[address] [facility] Hematocrit 33.6(L) 39.0 - 50.0 % 10/03/2018 6:[address] [facility] MCV 87.7 81.0 - 97.0 fL 10/03/2018 6:[address] [facility] MCH 27.4(L) 28.0 - 34.0 pg 10/03/2018 6:[address] [facility] MCHC 31.3(L) 32.0 - 36.0 g/dL 10/03/2018 6:[address] [facility] Platelet Count 327 150 - 400 10 3/uL 10/03/2018 6:[address] [facility] RDW-SD 53.1(H) 36.0 - 50.0 fL 10/03/2018 6:[address] [facility] RDW-CV 16.5(H) 11.2 - 14.8 % 10/03/2018 6:[address] [facility] MPV 10.4 9.3 - 12.8 fL 10/03/2018 6:[address] [facility] nRBC Absolute 0.00 0 10 3/uL 10/03/2018 6:[address] [facility] nRBC Auto 0.0 0 /100 WBC 10/03/2018 6:[address] [facility] Blood BLOOD SPECIMEN / Unknown Lab Venipuncture / Unknown 10/03/2018 5:29 AM CDT 10/03/2018 5:56 AM T Loco Burroughs MD LAB - HEMATOLOGY ORD ERABLES Performing Organization Address City/State/[facility] Co de Phone Number [address] [phone] * (ABNORMAL) BASIC METABOLIC PANEL (CALCIUM TOTAL) (10/03/2018 5:29 AM CDT) Only the most recent of10 resultswithin the time period is included. BUN 8 7 - 26 mg/dL 10/03/2018 6:[address] [facility] Creatinine 0.8 0.6 - 1.2 mg/dL 10/03/2018 6:[address] [facility] Sodium 138 136 - 145 mmol/L 10/03/2018 6:[address] [facility] Potassium 3.9 3.5 - 4.5 mmol/L 10/03/2018 6:[address] [facility] Chloride 101 98 - 107 mmol/L 10/03/2018 6:[address] [facility] CO2 27 22 - 29 mmol/L 10/03/2018 6:[address] [facility] Glucose 156(H) 70 - 115 mg/dL 10/03/2018 6:[address] [facility] Calcium 9.0 8.4 - 10.2 mg/dL 10/03/2018 6:[address] [facility] Anion Gap 14 8 - 18 10/03/2018 6:[address] [facility] BUN/Creatinine Ratio 10 7 - 23 10/03/2018 6:[address] [facility] Osmolality Calculated 288 270 - 300 mOsm/kg 10/03/2018 6:[address] [facility] eGFR >60 >60 mL/min/1.7 3 m2 10/03/2018 6:[address] [facility] Blood BLOOD SPECIMEN / Unknown Lab Venipuncture / Unknown 10/03/2018 5:29 AM CDT 10/03/2018 5:54 AM T Loco Burroughs MD LAB - CHEMISTRY EILEEN TAYLOR [facility] Organization Address City/State/ZIP Co de Phone Number [facility] [address] [phone] * (ABNORMAL) HEPATIC FUNCTION PANEL (10/03/2018 5:29 AM CDT) Only the most recent of10 resultswithin the time period is included. Protein Total 6.4 6.0 - 8.3 g/dL 019 6:[address] [facility] Albumin 2.3(L) 3.4 - 5.0 g/dL 10/03/2018 6:[address] [facility] Bilirubin Total 2.2(H) 0.2 - 1.2 mg/dL 09/06 6:[address] [facility] Bilirubin Conjugated 1.4(H) 0.0 - 0.5 mg/dL 10/03/2018 6:[address] [facility] Bilirubin Unconjugated 0.8 Unconjugated Bilirubin is a calculated value: Reference ranges have not been established. mg/dL 10/03/2018 6:[address] [facility] Alkaline Phosphatase 183(H) 40 - 150 Units/L 10/03/2018 6:[address] [facility] ALT 73(H) 0 - 55 Units/L 10/03/2018 6:[address] [facility] AST 64(H) 5 - 34 Units/L 10/03/2018 6:[address] [facility] Albumin/Globulin Ratio 0.6(L) 1.1 - 2.3 10/03/2018 6:[address] [facility] Blood BLOOD SPECIMEN / Unknown Lab Venipuncture / Unknown 10/03/2018 5:29 AM CDT 10/03/2018 5:54 AM CDT Loco Burroughs MD LAB - CHEMISTRY EILEEN TAYLOR [facility] Organization Address City/State/ZIP Co de Phone Number [address] [phone] * PATHOLOGY TISSUE (10/01/2018 1:37 PM CDT) Case Report Surgical Pathology Report Case: [id number] Authorizing Provider: Bonny Valerio MD Collected: 10/01/2018 01:37 PM Ordering Location: [facility] Received: 10/02/2018 06:18 AM Pathologist: Sri Smith MD Specimen: Gallbladder, gall bladder 10/03/2018 3:20 PM CDT [facility] Final Diagnosis Gallbladder, cholecystectomy (A): - Chronic cholecystitis - Cholelithiasis 10/03/2018 3:20 PM CDT [facility] Microscopic Description and Comment Microscopic examination substantiates the final diagnosis. 10/03/2018 3:20 PM CDT [facility] Clinical History The patient is a 47-year-old man with gallstone pancreatitis. Operative procedure: Laparoscopic cholecystectomy. 10/03/2018 3:20 PM CDT [facility] Gross Description The requisition and specimen label(s) are identified with the patient name, Margie Schaffer. Received in formalin, specimen A, gallbladder consists of a 12.0 cm length by 4.0 cm diameter gallbladder. The specimen is opened prior to receipt by pathology. The serosa is pink to purple-ni and mildly edematous with areas of purple ecchymosis. The specimen is opened to reveal brown-ni, velvety mucosa with coarse chau trabeculations distributed throughout the lumen. There are numerous smooth, yellow-ni stones measuring 0.5 to 1.4 cm with an aggregate measurement of 4.0 x 4.0 x 2.0 cm. The gallbladder wall measures up to 0.3 cm (0.1 to 0.3 cm). Cheese Grader sections to include fundus, neck of gallbladder, and cystic duct margin are submitted into cassette A1. ADH/cml 10/03/2018 3:20 PM [facility] Disclaimer The performance characteristics of all immunohistochemical and indirect immunofluorescence stains (if any) cited in this report were determined by the Histopathology Laboratory of [facility]. Some of these tests were developed by our own laboratory and have not been cleared or approved by the US Food and Drug Administration. The FDA does not require this test to go through premarket FDA review. These tests are used for clinical purposes. They should not be regarded as investigational or for research. This laboratory is certified under the Clinical Laboratory Improvement Amendments (CLIA) as qualified to perform high complexity clinical laboratory testing. This case has been personally reviewed and interpreted by the attending (teaching) pathologist. 10/03/2018 3:20 PM [facility] Embedded Images 10/03/2018 3:20 PM [facility] Resection without Tumor ENTIRE GALLBLADDER / Unknown 10/01/2018 1:37 PM CDT 10/02/2018 6:18 AM CDT Bonyn Valerio MD LAB - PATHOLOGY/CYT OLOGY ORDERABLES [facility] [address] [place] [address], [facility] [phone] * PT-INR [facility] (09/30/2018 5:06 AM CDT) Only the most recent of3 resultswithin the time period is included. PT 13.0 12.1 - 14.8 Seconds 09/30/2018 5:54 AM CDT [facility] INR 1.0 See Comment 09/30/2018 5:54 AM CDT [facility] Comment: The suggested therapeutic range for standard coumadin (warfarin) therapy is an INR of 2.0-3.0. For high-risk patients (Mechanical Mitral Valve Prosthesis, etc.), the suggested prophylactic therapeutic range is an INR of 2.5-3.5. Blood BLOOD SPECIMEN / Unknown 09/30/2018 5:06 AM CDT 09/30/2018 5:36 AM CDT Loco Burroughs MD LAB - COAGULATION OR DERABLES Performing Organization Address [facility] Co de Phone Number [facility] [address] [place] [address] * TYPE + SCREEN PANEL (09/30/2018 5:06 AM CDT) Antibody Screen NEG 9 6:32 AM CDT [facility] ABO Rh O POS 09/30/2018 6:32 AM CDT [facility] Blood Bank BLOOD SPECIMEN / Unknown Lab Venipuncture / Unknown 09/30/2018 5:06 AM CDT 09/30/2018 5:46 AM CDT Leta Santiago MD LAB - BLOOD BANK ORD ERABLES Performing Organization Address [facility] Co de Phone Number [facility] [address] [place] [address] * FL REECE SURGERY (09/27/2018 3:39 PM CDT) Narrative [facility] - 09/27/2018 3:40 PM CDT Fluoroscopy was used for this exam in the OR. Please see the Operative report. Isra Soto MD FLUOROSCOPY ORDERABL ES Performing Organization Address [facility] Co de Phone Number [facility] * ERCP (09/27/2018 2:07 PM CDT) Report Endoscopy POC Endoscopy Department Report _ Patient Name: Margie Schaffer Procedure Date: 09/27/2018 2:07 PM Date of : 1970 Classification: Inpatient Gender: Male Ethnicity: Not or Race: White _ Providers: Isra Dupont MD: Procedure: ERCP Indications: Elevated liver enzymes, Gallstone associated acute pancreatitis Medications: General Anesthesia Description of Procedure: After obtaining informed consent, the scope was passed under direct vision. Throughout the procedure, the patient's blood pressure, pulse, and oxygen saturations were monitored continuously.After obtaining informed consent, the scope was passed under direct vision. Throughout the procedure, the patient's blood pressure, pulse, and oxygen saturations were monitored continuously. The [id number]-Q180V was introduced through the mouth, and advanced to the duodenum and used to inject contrast into the bile duct. The ERCP was accomplished without difficulty. The patient tolerated the procedure well. Findings: The braided rug maker film was normal. The major papilla was normal. A 0.035 inch angled Glidewire was passed into the biliary tree. The short-nosed traction sphincterotome was passed over the guidewire and the bile duct was then deeply cannulated. Contrast was injected. I personally interpreted the bile duct images. Ductal flow of contrast was adequate. Image quality was adequate. Contrast extended to the entire biliary tree. The lower third of the main bile duct contained filling defect(s) thought to be a stone. An 8 mm biliary sphincterotomy was made with a traction (standard) sphincterotome using ERBE electrocautery. There was no post-sphincterotomy bleeding. The biliary tree was swept with a 12 mm balloon starting at the bifurcation. One stone was removed. No stones remained. Estimated Blood Loss: Estimated blood loss: none. Complications: No immediate complications. Impression: - The major papilla appeared normal. - A small filling defect consistent with a stone was seen on the cholangiogram. - A biliary sphincterotomy was performed. - The biliary tree was swept with removal of small stone - No evidence of remaining stones in the bile ducts - Good drainage of contrast from the biliary tree Recommendation: - [facility]. - Clear liquid diet today. - Consult surgery for cholecystectomy. Attending Participation: I personally performed the entire procedure. Procedure Code(s): --- Professional --- 24212, Endoscopic retrograde cholangiopancreatography (ERCP); with removal of calculi/debris from biliary/pancreatic duct(s) 91905, Endoscopic retrograde cholangiopancreatography (ERCP); with sphincterotomy/[place] 41258, Endoscopic catheterization of the biliary ductal system, radiological supervision and interpretation Diagnosis Code(s): --- Professional --- K80.50, Calculus of bile duct without cholangitis or cholecystitis without obstruction R74.8, Abnormal levels of other serum enzymes K85.10, Biliary acute pancreatitis without necrosis or infection R93.2, Abnormal findings on diagnostic imaging of liver and biliary tract CPT copyright 2016 [place] [employer]. All rights reserved. The codes documented in this report are preliminary and upon antique refinisher review may be revised to meet current compliance requirements. Isra Soto, 09/27/2018 3:35:34 PM Note Initiated On: 09/27/2018 2:07 PM Number of Addenda: 0 [facility] [address] [place] [address] [facility] 09/27/2018 2:07 PM CDT Isra Soto MD GI PROCEDURE ORDERAB LES [facility] * ECHO COMPLETE (09/25/2018 10:24 AM CDT) Anatomical Region Laterality Modality Color Flow Doppl er 09/25/2018 9:44 AM CDT Narrative Procedure Note Radah, Emily J, MD - 09/25/2018 Cassandra Nicolas MD ECHOCARDIOGRAPHY RADIANT * (ABNORMAL) GGT (09/23/2018 9:45 AM CDT) GGT 791(H) 9 - 64 Units/L 09/23/2018 10:22 AM CDT [facility] Blood BLOOD SPECIMEN / Unknown Lab Venipuncture / Unknown 09/23/2018 9:45 AM CDT 09/23/2018 9:51 AM CDT Cassandra Nicolas MD LAB - CHEMISTRY O RDERABLES [address] [phone] * (ABNORMAL) HEMOGLOBIN A1C (09/23/2018 4:02 AM CDT) Hemoglobin A1c 7.7(H) 4.4 - 6.3 % 09/25/2018 1:17 PM CDT [facility] Estimated Average Glucose 174 mg/dL 09/25/2018 1:17 PM T [facility] Comment: HbA1c Interpretation: Treatment target values recommended by ADA and other clinical organizations should be used to evaluate metabolic control in patients. Treatment Target Values: Normal : < 5.7% Pre-diabetes: 5.7-6.4% Diabetes: Equal to or greater than 6.5% Reference: [place] [employer] Standards of Care in Diabetes -2014 In patients 70 years and older consider HbA1c target range of 7.0-7.5% Reference: Diabetes Mellitus in Older People: Position Statement on behalf of the International Association of Gerontology and Geriatrics (IAGG), the Diabetes Working Constitution Party for Older People (EDWPOP), and the International Task Force of Experts in Diabetes. Mian Guallpa, et al. J [place] [employer]. 2012 Test results diagnostic of diabetes should be repeated for confirmation. The Sebia Capillary 2 assay for the measurement of HbA1c is a National Glycohemoglobin Standardization Program (NGSP)certified method. Blood BLOOD SPECIMEN / Unknown Venipuncture / Unknown 09/23/2018 4:02 AM CDT 09/23/2018 4:07 AM CDT Lamin Gonzalez III, MD LAB - CHEMISTRY O TIFFANY Performing Organization Address [facility] Co de Phone Number [address] [phone] * TRIGLYCERIDES BLOOD (09/23/2018 4:01 AM CDT) Triglycerides 139 <150 mg/dL 09/23/2018 4:[address] [facility] Comment: ATP III Classification of Triglycerides: <150 mg/dL: Normal 150 - 199 mg/dL: Borderline High 200 - 400 mg/dL: High >500 mg/dL: Very High Blood BLOOD SPECIMEN / Unknown Venipuncture / Unknown 09/23/2018 4:01 AM CDT 09/23/2018 4:07 AM CDT Lamin Gonzalez III, MD LAB - CHEMISTRY O TIFFANY Performing Organization Address [facility] [place] [address], [facility] [phone] * (ABNORMAL) COMPREHENSIVE METABOLIC PANEL (09/23/2018 4:01 AM CDT) Only the most recent of2 resultswithin the time period is included. BUN 16 7 - 26 mg/dL 09/23/2018 4:56 AM [facility] Creatinine 0.6 0.6 - 1.2 mg/dL 09/23/2018 4:56 AM [facility] Sodium 133(L) 136 - 145 mmol/L 09/23/2018 4:56 AM [facility] Potassium 3.6 3.5 - 4.5 mmol/L 09/23/2018 4:56 AM [facility] Chloride 96(L) 98 - 107 mmol/L 09/23/2018 4:56 AM [facility] CO2 24 22 - 29 mmol/L 09/23/2018 4:56 AM [facility] Glucose 212(H) 70 - 115 mg/dL 09/23/2018 4:[address] [facility] Calcium 9.8 8.4 - 10.2 mg/dL 09/23/2018 4:[address] [facility] Protein Total 6.7 6.0 - 8.3 g/dL 09/23/2018 4:[address] [facility] Albumin 2.3(L) 3.4 - 5.0 g/dL 09/23/2018 4:[address] [facility] Bilirubin Total 18.2(H) 0.2 - 1.2 mg/dL 09/23/2018 4:[address] [facility] Alkaline Phosphatase 753(H) 40 - 150 Units/L 09/23/2018 4:[address] [facility] ALT 149(H) 0 - 55 Units/L 09/23/2018 4:[address] [facility] AST 181(H) 5 - 34 Units/L 09/23/2018 4:[address] [facility] Anion Gap 17 8 - 18 09/23/2018 4:[address] [facility] BUN/Creatinine Ratio 27(H) 7 - 23 09/23/2018 4:[address] [facility] Osmolality Calculated 283 270 - 300 mOsm/kg 09/23/2018 4:[address] [facility] Albumin/Globulin Ratio 0.5(L) 1.1 - 2.3 09/23/2018 4:[address] [facility] eGFR >60 >60 mL/min/1.7 3 m2 09/23/2018 4:[address] [facility] Blood BLOOD SPECIMEN / Unknown Venipuncture / Unknown 09/23/2018 4:01 AM CDT 09/23/2018 4:07 AM T Mary Gage MD LAB - CHEMISTRY EILEEN TAYLOR [facility] Organization Address City/State/ZIP Co de Phone Number [address] [phone] * PHOSPHORUS BLOOD (09/23/2018 4:01 AM CDT) Only the most recent of2 resultswithin the time period is included. Phosphorus 2.6 2.3 - 4.7 mg/dL 09/23/2018 4:[address] [facility] Blood BLOOD SPECIMEN / Unknown Venipuncture / Unknown 09/23/2018 4:01 AM CDT 09/23/2018 4:07 AM CDT Mary Gage MD LAB - CHEMISTRY EILEEN TAYLOR Performing Organization Address [facility]/ZIP [place] [address], [facility] [phone] * MAGNESIUM BLOOD (09/23/2018 4:01 AM CDT) Only the most recent of2 resultswithin the time period is included. Magnesium 1.9 1.6 - 2.6 mg/dL 09/23/2018 4:[address] [facility] Blood BLOOD SPECIMEN / Unknown Venipuncture / Unknown 09/23/2018 4:01 AM CDT 09/23/2018 4:07 AM CDT Mary Gage MD LAB - CHEMISTRY EILEEN TAYLOR Performing Organization Address [facility] [place] [address], [facility] [phone] * CULTURE BLOOD (09/22/2018 11:40 PM CDT) Only the most recent of2 resultswithin the time period is included. [facility] Culture No growth day 5 MANN 09/28/2018 1:17 AM CDT [facility] Blood PERIPHERAL BLOOD / Unknown Lab Venipuncture / Unknown 09/22/2018 11:40 PM CDT 09/23/2018 12:00 AM CDT Mary Gage MD LAB - MICROBIOLOGY O RDERABLES Performing Organization Address City/[facility]/ZIP Co de Phone Number [facility] [address] [place] [address], [facility] [phone] * (ABNORMAL) URINALYSIS REFLEX TO MICROSCOPIC NO CULTURE (09/22/2018 11:08 PM CDT) Color UA Cathy(A) Straw, Yellow, Colorless 09/22/2018 11:[address] [facility] Clarity UA Slt Cloudy Clear, Slt Cloudy 09/22/2018 11:[address] [facility] Specific [place] UA 1.056(H) 1.005 - 1.030 09/22/2018 11:[address] [facility] pH UA 5.0 5.0 - 8.0 pH 09/22/2018 11:[address] [facility] Protein UA 2+(A) Negative mg/dL 09/22/2018 11:[address] [facility] Glucose UA 2+(A) Negative mg/dL 09/22/2018 11:[address] [facility] Ketone UA Negative Negative mg/dL 09/22/2018 11:[address] [facility] Bilirubin UA 2+(A) Negative mg/dL 09/22/2018 11:[address] [facility] Comment: Urine Bilirubin result confirmed by manual Ictotest. Blood UA Negative Negative 09/22/2018 11:[address] [facility] Nitrite UA Negative Negative 09/22/2018 11:[address] [facility] Leukocyte Esterase Negative Negative 09/22/2018 11:[address] [facility] Urobilinogen UA 4.0(A) Negative mg/dL 09/22/2018 11:[address] [facility] RBC UA 3-5 None Seen, 0-2, 3-5 /HPF 09/22/2018 11:[address] [facility] WBC UA 6-10(A) None Seen, 0-5 /HPF 09/22/2018 11:[address] [facility] Squamous Epithelial Cells UA 6-10(A) None Seen, 0-2 /HPF 09/22/2018 11:[address] [facility] Mucus UA 4+(A) None, 1+ /LPF 09/22/2018 11:[address] [facility] Urine URINE SPECIMEN OBTAINED BY CLEAN CATCH PROCEDURE / Unknown Collection / Unknown 09/22/2018 11:08 PM CDT 09/22/2018 11:13 PM [facility] - 09/22/2018 11:26 PM CDT Specific gravity results confirmed by refractometer. Mary Gage MD LAB - URINALYSIS ORD ERABLES [facility] [address] [place] [address], [facility] [phone] * CULTURE URINE (09/22/2018 11:08 PM CDT) Culture Urine <10,000 CFU/mL urogenital pradeep MANN 09/24/2018 6:31 AM CDT [facility] Urine URINE SPECIMEN OBTAINED BY CLEAN CATCH PROCEDURE / Unknown Collection / Unknown 09/22/2018 11:08 PM CDT 09/22/2018 11:14 PM CDT Mary Gage MD LAB - MICROBIOLOGY O RDERABLES Performing Organization Address City/[facility]/ZIP Co de Phone Number [facility] [address] [phone] * XR CHEST 1VW PORTABLE (09/22/2018 10:26 PM CDT) Anatomical Region Laterality Modality Chest Radiographic Smitha ging 09/23/2018 9:01 AM CDT Impressions 09/23/2018 3:48 PM CDT FINDINGS/IMPRESSION: The right costophrenic angle is excluded. There is no focal consolidation, pleural effusion, or pneumothorax. The cardiomediastinal silhouette is normal. Dictated by Tom Ro DO (rn radiology). IDr. GUNNER have personally reviewed and interpreted this examination/study. This report was electronically signed by GUNNER PEPPER on 09/23/2018 3:48 PM . Narrative 09/23/2018 3:48 PM CDT EXAMINATION: XR CHEST 1VW PORTABLE, 09/22/2018 10:27 PM HISTORY: Shortness of breath. COMPARISON: No prior study is available for comparison. Procedure Note Gunner Pepper MD - 09/23/2018 EXAMINATION: XR CHEST 1VW PORTABLE, 09/22/2018 10:27 PM HISTORY: Shortness of breath. COMPARISON: No prior study is available for comparison. FINDINGS/IMPRESSION: The right costophrenic angle is excluded. There is no focal consolidation, pleural effusion, or pneumothorax. The cardiomediastinal silhouette is normal. Dictated by Tom Ro DO (rn radiology). I, Dr. GUNNER PEPPER have personally reviewed and interpreted this examination/study. This report was electronically signed by GUNNER PEPPER on 09/23/2018 3:48 PM . MD ROSSY Marin III ORDERABLES * LACTIC ACID BLOOD (09/22/2018 10:13 PM CDT) Lactic Acid-Stat 1.1 0.5 - 2.2 mmol/L 09/22/2018 10:[address] [facility] Blood BLOOD SPECIMEN / Unknown Venipuncture / Unknown 09/22/2018 10:13 PM CDT 09/22/2018 10:19 PM CDT Mary Gage MD LAB - CHEMISTRY EILEEN TAYLOR [facility] Organization Address City/State/ZIP Co de Phone Number [address] [phone] * (ABNORMAL) CBC W AUTO DIFFERENTIAL (09/22/2018 9:29 PM CDT) WBC 26.4(H) 3.5 - 10.5 10 3/uL 09/22/2018 9:[address] [facility] RBC 4.85 4.30 - 5.70 10 6/uL 09/22/2018 9:[address] [facility] Hemoglobin 13.0(L) 13.5 - 17.5 g/dL 09/22/2018 9:[address] [facility] Hematocrit 39.3 39.0 - 50.0 % 09/22/2018 9:[address] [facility] MCV 81.0 81.0 - 97.0 fL 09/22/2018 9:[address] [facility] MCH 26.8(L) 28.0 - 34.0 pg 09/22/2018 9:[address] [facility] MCHC 33.1 32.0 - 36.0 g/dL 09/22/2018 9:[address] [facility] Platelet Count 336 150 - 400 10 3/uL 09/22/2018 9:[address] [facility] RDW-SD 53.3(H) 36.0 - 50.0 fL 09/22/2018 9:[address] [facility] RDW-CV 18.6(H) 11.2 - 14.8 % 09/22/2018 9:[address] [facility] MPV 10.6 9.3 - 12.8 fL 09/22/2018 9:[address] [facility] nRBC Absolute 0.00 0 10 3/uL 09/22/2018 9:[address] [facility] nRBC Auto 0.0 0 /100 WBC 09/22/2018 9:[address] [facility] Neutrophils % 87.5(H) 35.0 - 70.0 % 09/22/2018 9:[address] [facility] Lymphocytes % 4.8(L) 19.7 - 55.1 % 09/22/2018 9:[address] [facility] Monocytes % 5.6 3.0 - 15.0 % 09/22/2018 9:[address] [facility] Eosinophils % 0.2 0.0 - 6.0 % 09/22/2018 9:[address] [facility] Basophil % 0.2 0.0 - 1.5 % 09/22/2018 9:[address] [facility] Neutrophils Absolute 23.1(H) 1.6 - 7.0 10 3/uL 09/22/2018 9:[address] [facility] Lymphocyte Absolute 1.3 0.8 - 2.9 10 3/uL 09/22/2018 9:[address] [facility] Monocytes Absolute 1.49(H) 0.14 - 0.66 10 3/uL 09/22/2018 9:[address] [facility] Eosinophils Absolute 0.05 0.00 - 0.45 10 3/uL 09/22/2018 9:[address] [facility] Basophils Absolute 0.06 0.00 - 0.06 10 3/uL 09/22/2018 9:[address] [facility] Immature Granulocytes % 1.7(H) 0.0 - 1.0 % 09/22/2018 9:[address] [facility] Blood BLOOD SPECIMEN / Unknown Lab Venipuncture / Unknown 09/22/2018 9:29 PM CDT 09/22/2018 9:54 PM CDT Mary Gage MD LAB - HEMATOLOGY ORD ERABLES [address] [phone] * (ABNORMAL) LIPASE BLOOD (09/22/2018 9:29 PM CDT) Lipase 373(H) 8 - 78 Units/L 09/22/2018 10:[address] [facility] Blood BLOOD SPECIMEN / Unknown Lab Venipuncture / Unknown 09/22/2018 9:29 PM CDT 09/22/2018 9:54 PM CDT Mary Gage MD LAB - CHEMISTRY ORDE RABLES [address] [phone] * EKG 12-LEAD (09/22/2018 9:07 PM CDT) Ventricular Rate 98 BPM SL MUSE Atrial Rate 98 BPM [facility] M[facility] P-R Interval 146 ms [facility] QRS Duration ms 106 ms [facility] M[facility] Q-T Interval ms 362 ms [facility] QTC Calculation (Bezet) 462 ms [facility] M[facility] Calculated P [place] 56 degrees SL MUSE Calculated R [place] 31 degrees SL MUSE Calculated T [place] 34 degrees [facility] MUSE Interpretation EKG NORMAL SINUS RHYTHM NORMAL ECG NO PREVIOUS ECGS AVAILABLE Confirmed by Nohelia DUDLEY, DIANE ([id number]), communications editor AGGIE MORA ([id number]) on 09/29/2018 12:08:29 PM [facility] MUSE 09/22/2018 9:07 PM CDT 09/29/2018 12:08 PM CDT Lamin Gonzalez III, MD ECG ORDERABLES [facility] * (ABNORMAL) STREP A SCREEN - POINT OF CARE (AMB) STL (11/09/2016) Strep A Rapid POCT Positive(A) Negative Strep A Internal Control Present Lot # [id number] Expiration Date 03/02/2018 Throat ENTIRE THROAT (SURFACE REGION OF NECK) / Unknown 11/09/2016 [facility] - POINT OF CARE ORDERABLES Care Teams Scalp Specialist Relationship Specialty Start Date End Date Brielle Garcia APRN-CNP [address] [place] [address] PCP - General Nurse Practitioner Family 09/22/18
[2024-08-16 08:45] LABS: Hematocrit 47.5 % (42.0-52.0); Hemoglobin 15.4 g/dL (14.0-18.0)
[2024-08-16 08:58] LABS: Alanine Aminotransferase 19 U/L (6-50); Albumin Level 3.8 g/dL (3.5-5.1); Alkaline Phosphatase 97 U/L (38-126); Anion Gap 7 mmol/L (4-12); Aspartate Amino Transferase 19 U/L (17-59); Bilirubin,Total 0.7 mg/dL (0.2-1.3); Blood Urea Nitrogen 14 mg/dL (9-20); Carbon Dioxide 28 mmol/L (22-30); Chloride 103 mmol/L (98-107); Cholesterol 115 mg/dL (0-200); Estimated Glomerular Filt Rate > 60; Glucose 143 mg/dL (65-110); HDL Direct 34 mg/dL; Potassium 4.6 mmol/L (3.4-5.0); Sodium 138 mmol/L (137-145); Triglycerides 106 mg/dL (<150)
[2024-08-16 09:09] LABS: LDL Cholesterol Direct 57 mg/dL
[2024-08-16 09:26] LABS: Prostate Specific Antigen 0.7 ng/mL (< OR = 4.0)
[2024-08-16 09:27] LABS: Vitamin D 25 Hydroxy 53.6 ng/mL
== END 2024-08-16 07:51 | disposition home or self-care (01) ==
LOC: ANHLAB 07:51
PROVIDERS: PCP Nurse Practitioner Family; Visit Provider Internal Medicine Endocrinology, Diabetes & Metabolism
DX: E11.9 Type 2 diabetes mellitus without complications (principal); N62 Hypertrophy of breast; Z68.43 Body mass index [BMI] 50.0-59.9, adult; R79.89 Other specified abnormal findings of blood chemistry
CPT/HCPCS: 36415; 80053; 80061; 82306; 82607; 84153; 84402; 84403; 84443; 85014; 85018; G0103

== ENCOUNTER 2024-08-17 10:09 | Outpatient (CLI) | payer OTHER, SELFPAY ==
--- OUTSIDE RECORDS SUMMARY | 2024-08-17 10:49 | XMS_ITS | Clinical Summary ---
Author Organization [facility] [employer] Address [address] [place] [address] Care Team Providers Care Pilot Control Operator Name Role Phone Brielle Garcia JOYCELYN Primary Care Provider [phone]- [phone] Source Comments [facility] [employer],non-owned Affiliates and Associated Physician Practices is amultiple site organization consisting of ambulatory clinics and hospital sitesin [place], [place], [place] and [place]. This disclosure is being madepursuant to the Care Everywhere program and may not contain all information available regarding this patient. Last updated 18.[facility] [employer] Allergies No known active allergies Medications * [...] 7 - 26 mg/dL 10/03/2018 6:12 AM [facility] Creatinine 0.8 0.6 - 1.2 mg/dL 10/03/2018 6:12 AM [facility] Sodium 138 136 - 145 mmol/L 10/03/2018 6:12 AM [facility] Potassium 3.9 3.5 - 4.5 mmol/L 10/03/2018 6:12 AM [facility] Chloride 101 98 - 107 mmol/L 10/03/2018 6:12 AM [facility] CO2 27 22 - 29 mmol/L 10/03/2018 6:12 AM [facility] Glucose 156(H) 70 - 115 mg/dL 10/03/2018 6:12 AM [facility] Calcium 9.0 8.4 - 10.2 mg/dL 10/03/2018 6:12 AM [facility] Anion Gap 14 8 - 18 10/03/2018 6:12 AM [facility] BUN/Creatinine Ratio 10 7 - 23 10/03/2018 6:12 AM [facility] Osmolality Calculated 288 270 - 300 mOsm/kg 10/03/2018 6:12 AM [facility] eGFR >60 >60 mL/min/1.7 3 m2 10/03/2018 6:12 AM CDT [facility] Blood BLOOD SPECIMEN / Unknown Lab Venipuncture / Unknown 10/03/2018 5:29 AM CDT 10/03/2018 5:54 AM CDT Loco Burroughs MD LAB - CHEMISTRY EILEEN Bourgeois Organization Address City/State/ZIP Co de Phone Number [facility] [address] [phone] from Last 3 Months or Most Recently Relevant to Health Maintenance Advance Directives * Full Code (Latest Code Status on File) Date Activated Date Inactivated Comments 09/22/2018 9:05 PM 10/03/2018 2:50 PM * Full Code Date Activated Date Inactivated Comments 09/22/2018 9:02 PM 09/22/2018 9:05 PM Care Teams Pilot Control Operator Relationship Specialty Start Date End Date Brielle Garcia APRN-CNP [address] [place] [address] PCP - General Nurse Practitioner Family 09/22/18
--- OUTSIDE RECORDS SUMMARY | 2024-08-17 10:49 | XMS_ITS | Referral Summary ---
Author Organization [facility] [employer] Address [address] [place] [address] Care Team Providers Care Mint Machine Operator Name Role Phone Brielle Garcia JOYCELYN Primary Care Provider [phone]- [phone] Source Comments [facility] [employer],non-owned Affiliates and Associated Physician Practices is amultiple site organization consisting of ambulatory clinics and hospital sitesin [place], [place], [place] and [place]. This disclosure is being madepursuant to the Care Everywhere program and may not contain all information available regarding this patient. Last updated 18.[facility] [employer] Allergies No known active allergies Medications * [...] - 26 mg/dL 10/03/2018 6:12 AM CDT [facility] Creatinine 0.8 0.6 - 1.2 mg/dL 10/03/2018 6:12 AM CDT [facility] Sodium 138 136 - 145 mmol/L 10/03/2018 6:12 AM [facility] Potassium 3.9 3.5 - 4.5 mmol/L 10/03/2018 6:12 AM [facility] Chloride 101 98 - 107 mmol/L 10/03/2018 6:12 AM [facility] CO2 27 22 - 29 mmol/L 10/03/2018 6:12 AM [facility] Glucose 156(H) 70 - 115 mg/dL 10/03/2018 6:12 AM [facility] Calcium 9.0 8.4 - 10.2 mg/dL 10/03/2018 6:12 AM [facility] Anion Gap 14 8 - 18 10/03/2018 6:12 AM [facility] BUN/Creatinine Ratio 10 7 - 23 10/03/2018 6:12 AM [facility] Osmolality Calculated 288 270 - 300 mOsm/kg 10/03/2018 6:12 AM [facility] eGFR >60 >60 mL/min/1.7 3 m2 10/03/2018 6:12 AM [facility] Blood BLOOD SPECIMEN / Unknown Lab Venipuncture / Unknown 10/03/2018 5:29 AM CDT 10/03/2018 5:54 AM [facility] Loco Burroughs MD LAB - CHEMISTRY EILEEN TAYLOR [facility] Organization Address City/State/[facility] Co de Phone Number [facility] [address] [phone] from Last 3 Months or Most Recently Relevant to Health Maintenance Advance Directives * Full Code (Latest Code Status on File) Date Activated Date Inactivated Comments 09/22/2018 9:05 PM 10/03/2018 2:50 PM * Full Code Date Activated Date Inactivated Comments 09/22/2018 9:02 PM 09/22/2018 9:05 PM Care Teams Mint Machine Operator Relationship Specialty Start Date End Date Brielle Garcia APRN-KASSY [address] [place] [address] PCP - General Nurse Practitioner Family 09/22/18
--- OUTSIDE RECORDS SUMMARY | 2024-08-17 10:49 | XMS_ITS | Patient Health Summary ---
Author Organization [facility] [place] Address [address] [address] Care Team Providers Care Boning Room Worker Name Role Phone Brielle Garcia JOYCELYN Primary Care Provider [phone] Note from [facility],non-owned Affiliates and Associated Physician Practices is amultiple site organization consisting of ambulatory clinics and hospital sitesin [place], [place], [place] and [place]. This disclosure is being madepursuant to the Care Everywhere program and may not contain all information available regarding this patient. Last updated 18.[facility] [place] Allergies No known active allergies Medications * [...] of58 resultswithin the time period is included. [facility] Glucose WB/POC 159(H) 70 - 115 mg/dL 10/03/2018 11:36 AM T [facility] Specimen Type Arterial/C apillary 10/03/2018 11:36 AM T [facility] Blood BLOOD SPECIMEN / Unknown 10/03/2018 11:19 AM CDT 10/03/2018 11:36 AM CDT Narrative [facility] - 10/03/2018 11:36 AM CDT PLASTIC MAKER: GANESH ESPOSITO Loco Burroughs MD LAB - POINT OF CARE ORDERABLES [address] [phone] * (ABNORMAL) CBC W/O DIFFERENTIAL (10/03/2018 5:29 AM CDT) Only the most recent of11 resultswithin the time period is included. [facility] WBC 7.8 3.5 - 10.5 10 3/uL 10/03/2018 6:02 AM [facility] RBC 3.83(L) 4.30 - 5.70 10 6/uL 10/03/2018 6:02 AM [facility] Hemoglobin 10.5(L) 13.5 - 17.5 g/dL 10/03/2018 6:02 AM [facility] Hematocrit 33.6(L) 39.0 - 50.0 % 10/03/2018 6:02 AM [facility] MCV 87.7 81.0 - 97.0 fL 10/03/2018 6:02 AM [facility] MCH 27.4(L) 28.0 - 34.0 pg 10/03/2018 6:02 AM [facility] MCHC 31.3(L) 32.0 - 36.0 g/dL 10/03/2018 6:02 AM [facility] Platelet Count 327 150 - 400 10 3/uL 10/03/2018 6:02 AM [facility] RDW-SD 53.1(H) 36.0 - 50.0 fL 10/03/2018 6:02 AM [facility] RDW-CV 16.5(H) 11.2 - 14.8 % 10/03/2018 6:02 AM [facility] MPV 10.4 9.3 - 12.8 fL 10/03/2018 6:02 AM [facility] nRBC Absolute 0.00 0 10 3/uL 10/03/2018 6:02 AM [facility] nRBC Auto 0.0 0 /100 WBC 10/03/2018 6:02 AM [facility] Blood BLOOD SPECIMEN / Unknown Lab Venipuncture / Unknown 10/03/2018 5:29 AM CDT 10/03/2018 5:56 AM T Loco Burroughs MD LAB - HEMATOLOGY ORD ERABLES Performing Organization Address City/State/[facility] Co de Phone Number [address] [phone] * (ABNORMAL) BASIC METABOLIC PANEL (CALCIUM TOTAL) (10/03/2018 5:29 AM CDT) Only the most recent of10 resultswithin the time period is included. BUN 8 7 - 26 mg/dL 10/03/2018 6:12 AM [facility] Creatinine 0.8 0.6 - 1.2 mg/dL 10/03/2018 6:12 AM [facility] Sodium 138 136 - 145 mmol/L 10/03/2018 6:12 AM [facility] Potassium 3.9 3.5 - 4.5 mmol/L 10/03/2018 6:12 AM [facility] Chloride 101 98 - 107 mmol/L 10/03/2018 6:12 AM [facility] CO2 27 22 - 29 mmol/L 10/03/2018 6:12 AM [facility] Glucose 156(H) 70 - 115 mg/dL 10/03/2018 6:12 AM [facility] Calcium 9.0 8.4 - 10.2 mg/dL 10/03/2018 6:12 AM [facility] Anion Gap 14 8 - 18 10/03/2018 6:12 AM [facility] BUN/Creatinine Ratio 10 7 - 23 10/03/2018 6:12 AM [facility] Osmolality Calculated 288 270 - 300 mOsm/kg 10/03/2018 6:12 AM [facility] eGFR >60 >60 mL/min/1.7 3 m2 10/03/2018 6:12 AM [facility] Blood BLOOD SPECIMEN / Unknown Lab Venipuncture / Unknown 10/03/2018 5:29 AM CDT 10/03/2018 5:54 AM T Loco Burroughs MD LAB - CHEMISTRY EILEEN TAYLOR [facility] Organization Address City/State/ZIP Co de Phone Number [facility] [address] [phone] * (ABNORMAL) HEPATIC FUNCTION PANEL (10/03/2018 5:29 AM CDT) Only the most recent of10 resultswithin the time period is included. Protein Total 6.4 6.0 - 8.3 g/dL 019 6:12 AM [facility] Albumin 2.3(L) 3.4 - 5.0 g/dL 10/03/2018 6:12 AM [facility] Bilirubin Total 2.2(H) 0.2 - 1.2 mg/dL 09/06 6:12 AM [facility] Bilirubin Conjugated 1.4(H) 0.0 - 0.5 mg/dL 10/03/2018 6:12 AM [facility] Bilirubin Unconjugated 0.8 Unconjugated Bilirubin is a calculated value: Reference ranges have not been established. mg/dL 10/03/2018 6:12 AM CDT [facility] Alkaline Phosphatase 183(H) 40 - 150 Units/L 10/03/2018 6:12 AM CDT [facility] ALT 73(H) 0 - 55 Units/L 10/03/2018 6:12 AM CDT [facility] AST 64(H) 5 - 34 Units/L 10/03/2018 6:12 AM CDT [facility] Albumin/Globulin Ratio 0.6(L) 1.1 - 2.3 10/03/2018 6:12 AM CDT [facility] Blood BLOOD SPECIMEN / Unknown Lab Venipuncture / Unknown 10/03/2018 5:29 AM CDT 10/03/2018 5:54 AM CDT Loco Burroughs MD LAB - CHEMISTRY EILEEN TAYLOR [facility] Organization Address City/State/ZIP Co de Phone Number [address] [phone] * PATHOLOGY TISSUE (10/01/2018 1:37 PM CDT) Case Report Surgical Pathology Report Case: [id number] Authorizing Provider: Bonny Valerio MD Collected: 10/01/2018 01:37 PM Ordering Location: [facility] Received: 10/02/2018 06:18 AM Pathologist: Sri Smith MD Specimen: Gallbladder, gall bladder 10/03/2018 3:20 PM CDT [facility] Final Diagnosis Gallbladder, cholecystectomy (A): - Chronic cholecystitis - Cholelithiasis 10/03/2018 3:20 PM CDT [facility] Microscopic Description and Comment [...] to 0.3 cm (0.1 to 0.3 cm). Supervisor Heat Treating sections to include fundus, neck of gallbladder, and cystic duct margin are submitted into cassette A1. ADH/cml 10/03/2018 3:20 PM [facility] Disclaimer The performance characteristics of all immunohistochemical and indirect immunofluorescence stains (if any) cited in this report were determined by the Histopathology Laboratory of [facility]. Some of these tests were developed by [...] the attending (teaching) pathologist. 10/03/2018 3:20 PM [facility] Embedded Images 10/03/2018 3:20 PM [facility] Resection without Tumor ENTIRE GALLBLADDER / Unknown 10/01/2018 1:37 PM CDT 10/02/2018 6:18 AM CDT Bonny Valerio MD LAB - PATHOLOGY/CYT OLOGY ORDERABLES [facility] [address] [place] [address], [facility] [phone] * PT-INR [facility] (09/30/2018 5:06 AM CDT) Only the most recent of3 resultswithin the time period is included. PT 13.0 12.1 - 14.8 Seconds 09/30/2018 5:54 AM CDT [facility] INR 1.0 See Comment 09/30/2018 5:54 AM CDT [facility] Comment: The suggested therapeutic range for standard coumadin (warfarin) therapy is an INR of 2.0-3.0. For high-risk patients (Mechanical Mitral Valve Prosthesis, etc.), the suggested prophylactic therapeutic range is an INR of 2.5-3.5. Blood BLOOD SPECIMEN / Unknown 09/30/2018 5:06 AM CDT 09/30/2018 5:36 AM CDT Loco Burroughs MD LAB - COAGULATION OR DERABLES Performing Organization Address [facility] Co de Phone Number [facility] [address] [place] [address] * TYPE + SCREEN PANEL (09/30/2018 5:06 AM CDT) Antibody Screen NEG 9 6:32 AM CDT [facility] ABO Rh O POS 09/30/2018 6:32 AM CDT [facility] Blood Bank BLOOD SPECIMEN / Unknown Lab Venipuncture / Unknown 09/30/2018 5:06 AM CDT 09/30/2018 5:46 AM CDT Leta Santiago MD LAB - BLOOD BANK ORD ERABLES Performing Organization Address [facility] Co de Phone Number [facility] [address] [place] [address] * FL REECE SURGERY (09/27/2018 3:39 PM CDT) Narrative [facility] - 09/27/2018 3:40 PM CDT Fluoroscopy was used for this exam in the OR. Please see the Operative report. Isra Soto MD FLUOROSCOPY ORDERABL ES Performing Organization Address [facility] Co de Phone Number [facility] * ERCP (09/27/2018 2:07 PM CDT) [...] patient tolerated the procedure well. Findings: The anesthesiology resident film was normal. The major papilla was [...] entire procedure. Procedure Code(s): --- Professional --- 24969, Endoscopic retrograde cholangiopancreatography (ERCP); with removal of calculi/debris from biliary/pancreatic duct(s) 40613, Endoscopic retrograde cholangiopancreatography (ERCP); [place]incter[place] [address], Endoscopic catheterization of the biliary ductal system, radiological supervision and interpretation Diagnosis Code(s): --- Professional --- K80.50, Calculus of bile duct without cholangitis or cholecystitis without obstruction R74.8, Abnormal levels of other serum enzymes K85.10, Biliary acute pancreatitis without necrosis or infection R93.2, Abnormal findings on diagnostic imaging of liver and biliary tract CPT copyright 2016 [employer]. All rights reserved. The codes documented in this report are preliminary and upon sales enablement consultant review may be revised to meet current compliance requirements. Isra Soto, 09/27/2018 3:35:34 PM Note Initiated On: 09/27/2018 2:07 PM Number of Addenda: 0 [facility] [address] [place] [address] [facility] 09/27/2018 2:07 PM CDT Isra Soto MD GI PROCEDURE ORDERAB LES [facility] * ECHO COMPLETE (09/25/2018 10:24 AM CDT) Anatomical Region Laterality Modality Color Flow Doppl er 09/25/2018 9:44 AM CDT Narrative Procedure Note Radha, Emily J, MD - 09/25/2018 Cassandra Nicolas MD ECHOCARDIOGRAPHY RADIANT * (ABNORMAL) GGT (09/23/2018 9:45 AM CDT) GGT 791(H) 9 - 64 Units/L 09/23/2018 10:22 AM CDT [facility] Blood BLOOD SPECIMEN / Unknown Lab Venipuncture / Unknown 09/23/2018 9:45 AM CDT 09/23/2018 9:51 AM CDT Cassandra Nicolas MD LAB - CHEMISTRY O RDERABLES [address] [phone] * (ABNORMAL) HEMOGLOBIN A1C (09/23/2018 4:02 AM CDT) Hemoglobin A1c 7.7(H) 4.4 - 6.3 % 09/25/2018 1:17 PM CDT [facility] Estimated Average Glucose 174 mg/dL 09/25/2018 1:17 PM T [facility] Comment: HbA1c Interpretation: Treatment target values recommended by ADA and other clinical organizations should be used to evaluate metabolic control in patients. Treatment Target Values: Normal : < 5.7% Pre-diabetes: 5.7-6.4% Diabetes: Equal to or greater than 6.5% Reference: [place] [employer] Standards of Care in Diabetes -2014 In patients 70 years and older consider HbA1c target range of 7.0-7.5% Reference: Diabetes Mellitus in Older People: Position Statement on behalf of the International Association of Gerontology and Geriatrics (IAGG), the Diabetes Working Democrat for Older People (EDWPOP), and the International Task Force of Experts in Diabetes. Mian Guallpa, et al. J [place] [employer]. 2012 Test results diagnostic of diabetes should be repeated for confirmation. The Sebia Capillary 2 assay for the measurement of HbA1c is a National Glycohemoglobin Standardization Program (NGSP)certified method. Blood BLOOD SPECIMEN / Unknown Venipuncture / Unknown 09/23/2018 4:02 AM CDT 09/23/2018 4:07 AM CDT Lamin Gonzalez III, MD LAB - CHEMISTRY O TIFFANY Performing Organization Address [facility] Co de Phone Number [address] [phone] * TRIGLYCERIDES BLOOD (09/23/2018 4:01 AM CDT) Triglycerides 139 <150 mg/dL 09/23/2018 4:29 AM [facility] Comment: ATP III Classification of Triglycerides: <150 mg/dL: Normal 150 - 199 mg/dL: Borderline High 200 - 400 mg/dL: High >500 mg/dL: Very High Blood BLOOD SPECIMEN / Unknown Venipuncture / Unknown 09/23/2018 4:01 AM CDT 09/23/2018 4:07 AM CDT Lamin Gonzalez III, MD LAB - CHEMISTRY O TIFFANY Performing Organization Address [facility] [place] [address], [facility] [phone] * (ABNORMAL) COMPREHENSIVE METABOLIC PANEL (09/23/2018 4:01 AM CDT) Only the most recent of2 resultswithin the time period is included. BUN 16 7 - 26 mg/dL 09/23/2018 4:56 AM [facility] Creatinine 0.6 0.6 - 1.2 mg/dL 09/23/2018 4:56 AM [facility] Sodium 133(L) 136 - 145 mmol/L 09/23/2018 4:56 AM [facility] Potassium 3.6 3.5 - 4.5 mmol/L 09/23/2018 4:56 AM [facility] Chloride 96(L) 98 - 107 mmol/L 09/23/2018 4:56 AM [facility] CO2 24 22 - 29 mmol/L 09/23/2018 4:56 AM [facility] Glucose 212(H) 70 - 115 mg/dL 09/23/2018 4:56 AM [facility] Calcium 9.8 8.4 - 10.2 mg/dL 09/23/2018 4:56 AM [facility] Protein Total 6.7 6.0 - 8.3 g/dL 09/23/2018 4:56 AM [facility] Albumin 2.3(L) 3.4 - 5.0 g/dL 09/23/2018 4:56 AM [facility] Bilirubin Total 18.2(H) 0.2 - 1.2 mg/dL 09/23/2018 4:56 AM [facility] Alkaline Phosphatase 753(H) 40 - 150 Units/L 09/23/2018 4:56 AM [facility] ALT 149(H) 0 - 55 Units/L 09/23/2018 4:56 AM [facility] AST 181(H) 5 - 34 Units/L 09/23/2018 4:56 AM [facility] Anion Gap 17 8 - 18 09/23/2018 4:56 AM [facility] BUN/Creatinine Ratio 27(H) 7 - 23 09/23/2018 4:56 AM [facility] Osmolality Calculated 283 270 - 300 mOsm/kg 09/23/2018 4:56 AM [facility] Albumin/Globulin Ratio 0.5(L) 1.1 - 2.3 09/23/2018 4:56 AM [facility] eGFR >60 >60 mL/min/1.7 3 m2 09/23/2018 4:56 AM [facility] Blood BLOOD SPECIMEN / Unknown Venipuncture / Unknown 09/23/2018 4:01 AM CDT 09/23/2018 4:07 AM T Mary Gage MD LAB - CHEMISTRY EILEEN TAYLOR [facility] Organization Address City/State/ZIP Co de Phone Number [address] [phone] * PHOSPHORUS BLOOD (09/23/2018 4:01 AM CDT) Only the most recent of2 resultswithin the time period is included. Phosphorus 2.6 2.3 - 4.7 mg/dL 09/23/2018 4:46 AM CDT [facility] Blood BLOOD SPECIMEN / Unknown Venipuncture / Unknown 09/23/2018 4:01 AM CDT 09/23/2018 4:07 AM CDT Mary Gage MD LAB - CHEMISTRY EILEEN TAYLOR Performing Organization Address [facility]/[place] [address], [facility] [phone] * MAGNESIUM BLOOD (09/23/2018 4:01 AM CDT) Only the most recent of2 resultswithin the time period is included. Magnesium 1.9 1.6 - 2.6 mg/dL 09/23/2018 4:46 AM CDT [facility] Blood BLOOD SPECIMEN / Unknown Venipuncture / Unknown 09/23/2018 4:01 AM CDT 09/23/2018 4:07 AM CDT Mary Gage MD LAB - CHEMISTRY EILEEN TAYLOR Performing Organization Address [facility] [place] [address], [facility] [phone] * CULTURE BLOOD (09/22/2018 11:40 PM CDT) Only the most recent of2 resultswithin the time period is included. [facility] Culture No growth day 5 MANN 09/28/2018 1:17 AM CDT [facility] Blood PERIPHERAL BLOOD / Unknown Lab Venipuncture / Unknown 09/22/2018 11:40 PM CDT 09/23/2018 12:00 AM CDT Mary Gage MD LAB - MICROBIOLOGY O RDERABLES Performing Organization Address City/[facility]/ZIP Co de Phone Number [facility] [address] [place] [address], [facility] [phone] * (ABNORMAL) URINALYSIS REFLEX TO MICROSCOPIC NO CULTURE (09/22/2018 11:08 PM CDT) Color UA Cathy(A) Straw, Yellow, Colorless 09/22/2018 11:26 PM [facility] Clarity UA Slt Cloudy Clear, Slt Cloudy 09/22/2018 11:26 PM [facility] Specific [place] UA 1.056(H) 1.005 - 1.030 09/22/2018 11:26 PM [facility] pH UA 5.0 5.0 - 8.0 pH 09/22/2018 11:26 PM [facility] Protein UA 2+(A) Negative mg/dL 09/22/2018 11:26 PM [facility] Glucose UA 2+(A) Negative mg/dL 09/22/2018 11:26 PM [facility] Ketone UA Negative Negative mg/dL 09/22/2018 11:26 PM [facility] Bilirubin UA 2+(A) Negative mg/dL 09/22/2018 11:26 PM [facility] Comment: Urine Bilirubin result confirmed by manual Ictotest. Blood UA Negative Negative 09/22/2018 11:26 PM [facility] Nitrite UA Negative Negative 09/22/2018 11:26 PM [facility] Leukocyte Esterase Negative Negative 09/22/2018 11:26 PM [facility] Urobilinogen UA 4.0(A) Negative mg/dL 09/22/2018 11:26 PM [facility] RBC UA 3-5 None Seen, 0-2, 3-5 /HPF 09/22/2018 11:26 PM [facility] WBC UA 6-10(A) None Seen, 0-5 /HPF 09/22/2018 11:26 PM [facility] Squamous Epithelial Cells UA 6-10(A) None Seen, 0-2 /HPF 09/22/2018 11:26 PM [facility] Mucus UA 4+(A) None, 1+ /LPF 09/22/2018 11:26 PM [facility] Urine URINE SPECIMEN OBTAINED BY CLEAN CATCH PROCEDURE / Unknown Collection / Unknown 09/22/2018 11:08 PM CDT 09/22/2018 11:13 PM [facility] - 09/22/2018 11:26 PM CDT Specific gravity results confirmed by refractometer. Mary Gage MD LAB - URINALYSIS ORD ERABLES [facility] [address] [place] [address], [facility] [phone] * CULTURE URINE (09/22/2018 11:08 PM CDT) Culture Urine <10,000 CFU/mL urogenital pradeep MANN 09/24/2018 6:31 AM CDT [facility] Urine URINE SPECIMEN OBTAINED BY CLEAN CATCH PROCEDURE / Unknown Collection / Unknown 09/22/2018 11:08 PM CDT 09/22/2018 11:14 PM CDT Mary Gage MD LAB - MICROBIOLOGY O RDERABLES Performing Organization Address City/[facility]/ZIP Co de Phone Number [facility] [address] [phone] * XR CHEST 1VW PORTABLE (09/22/2018 10:26 PM CDT) Anatomical Region Laterality Modality Chest Radiographic Smitha ging 09/23/2018 9:01 AM CDT Impressions 09/23/2018 3:48 PM CDT FINDINGS/IMPRESSION: The right costophrenic angle is excluded. There is no focal consolidation, pleural effusion, or pneumothorax. The cardiomediastinal silhouette is normal. Dictated by Tom Ro DO (technical operations vice president). IDr. GUNNER have personally reviewed and interpreted [...] is normal. Dictated by Tom Ro DO (technical operations vice president). I, Dr. GUNNER PEPPER have personally reviewed and interpreted this examination/study. This report was electronically signed by GUNNER PEPPER on 09/23/2018 3:48 PM . MD ROSSY Marin III ORDERABLES * LACTIC ACID BLOOD (09/22/2018 10:13 PM CDT) Lactic Acid-Stat 1.1 0.5 - 2.2 mmol/L 09/22/2018 10:34 PM CDT [facility] Blood BLOOD SPECIMEN / Unknown Venipuncture / Unknown 09/22/2018 10:13 PM CDT 09/22/2018 10:19 PM CDT Mary Gage MD LAB - CHEMISTRY EILEEN TAYLOR [facility] Organization Address City/State/ZIP Co de Phone Number [address] [phone] * (ABNORMAL) CBC W AUTO DIFFERENTIAL (09/22/2018 9:29 PM CDT) WBC 26.4(H) 3.5 - 10.5 10 3/uL 09/22/2018 9:59 PM CDT [facility] RBC 4.85 4.30 - 5.70 10 6/uL 09/22/2018 9:59 PM CDT [facility] Hemoglobin 13.0(L) 13.5 - 17.5 g/dL 09/22/2018 9:59 PM CDT [facility] Hematocrit 39.3 39.0 - 50.0 % 09/22/2018 9:59 PM CDT [facility] MCV 81.0 81.0 - 97.0 fL 09/22/2018 9:59 PM CDT [facility] MCH 26.8(L) 28.0 - 34.0 pg 09/22/2018 9:59 PM CDT [facility] MCHC 33.1 32.0 - 36.0 g/dL 09/22/2018 9:59 PM [facility] Platelet Count 336 150 - 400 10 3/uL 09/22/2018 9:59 PM [facility] RDW-SD 53.3(H) 36.0 - 50.0 fL 09/22/2018 9:59 PM [facility] RDW-CV 18.6(H) 11.2 - 14.8 % 09/22/2018 9:59 PM [facility] MPV 10.6 9.3 - 12.8 fL 09/22/2018 9:59 PM [facility] nRBC Absolute 0.00 0 10 3/uL 09/22/2018 9:59 PM [facility] nRBC Auto 0.0 0 /100 WBC 09/22/2018 9:59 PM [facility] Neutrophils % 87.5(H) 35.0 - 70.0 % 09/22/2018 9:59 PM [facility] Lymphocytes % 4.8(L) 19.7 - 55.1 % 09/22/2018 9:59 PM [facility] Monocytes % 5.6 3.0 - 15.0 % 09/22/2018 9:59 PM [facility] Eosinophils % 0.2 0.0 - 6.0 % 09/22/2018 9:59 PM [facility] Basophil % 0.2 0.0 - 1.5 % 09/22/2018 9:59 PM [facility] Neutrophils Absolute 23.1(H) 1.6 - 7.0 10 3/uL 09/22/2018 9:59 PM [facility] Lymphocyte Absolute 1.3 0.8 - 2.9 10 3/uL 09/22/2018 9:59 PM [facility] Monocytes Absolute 1.49(H) 0.14 - 0.66 10 3/uL 09/22/2018 9:59 PM [facility] Eosinophils Absolute 0.05 0.00 - 0.45 10 3/uL 09/22/2018 9:59 PM [facility] Basophils Absolute 0.06 0.00 - 0.06 10 3/uL 09/22/2018 9:59 PM [facility] Immature Granulocytes % 1.7(H) 0.0 - 1.0 % 09/22/2018 9:59 PM CDT [facility] Blood BLOOD SPECIMEN / Unknown Lab Venipuncture / Unknown 09/22/2018 9:29 PM CDT 09/22/2018 9:54 PM CDT Mary Gage MD LAB - HEMATOLOGY ORD ERABLES [address] [phone] * (ABNORMAL) LIPASE BLOOD (09/22/2018 9:29 PM CDT) Lipase 373(H) 8 - 78 Units/L 09/22/2018 10:15 PM CDT [facility] Blood BLOOD SPECIMEN / Unknown Lab Venipuncture / Unknown 09/22/2018 9:29 PM CDT 09/22/2018 9:54 PM CDT Mary Gage MD LAB - CHEMISTRY ORDE RABLES [address] [phone] * EKG 12-LEAD (09/22/2018 9:07 PM CDT) Ventricular Rate 98 BPM [facility]USE Atrial Rate 98 BPM [facility] P-R Interval 146 ms [facility] QRS Duration ms 106 ms [facility] Q-T Interval ms 362 ms [facility] QTC Calculation (Bezet) 462 ms [facility] Calculated P [place] 56 degrees SL MUSE Calculated R [place] 31 degrees SL MUSE Calculated T [place] 34 degrees [facility] Interpretation EKG NORMAL SINUS RHYTHM NORMAL ECG NO PREVIOUS ECGS AVAILABLE Confirmed by Nohelia DUDLEY, DIANE ([id number]), editor book AGGIE MORA ([id number]) on 09/29/2018 12:08:29 PM [facility] 09/22/2018 9:07 PM CDT 09/29/2018 12:08 PM CDT Lamin Gonzalez III, MD ECG ORDERABLES [facility] * (ABNORMAL) STREP A SCREEN - POINT OF CARE (AMB) STL (11/09/2016) Strep A Rapid POCT Positive(A) Negative Strep A Internal Control Present Lot # [id number] Expiration Date 03/02/2018 Throat ENTIRE THROAT (SURFACE REGION OF NECK) / Unknown 11/09/2016 [facility] - POINT OF CARE ORDERABLES Care Teams Boning Room Worker Relationship Specialty Start Date End Date Brielle Garcia APRN-CNP [address] [place] [phone] PCP - General Nurse Practitioner Family 09/22/18
--- OUTSIDE RECORDS SUMMARY | 2024-08-17 10:49 | XMS_ITS | Clinical Summary ---
Author Organization [facility] Address [address] [place] [address] Phone Care Team Providers Care Payroll And Benefits Specialist Name Role Phone Garcia Brielle VO CNP Primary Care Provider [phone] [phone] Allergies No known active allergies Medications metroNIDAZOLE [...] - 144 mmol/L 09/22/2018 1:11 PM CDT [facility] POTASSIUM 3.9 3.5 - 5.1 mmol/L 09/22/2018 1:11 PM CDT [facility] CHLORIDE 89(L) 100 - 110 mmol/L 09/22/2018 1:11 PM CDT [facility] CO2, VENOUS 23 22 - 32 mmol/L 09/22/2018 1:11 PM CDT [facility] ANION GAP 18.9 8.0 - 20.0 mmol/L 09/22/2018 1:11 PM CDT [facility] GLUCOSE 325(H) 70 - 99 mg/dL 09/22/2018 1:11 PM CDT [facility] BUN 15 6 - 20 mg/dL 09/22/2018 1:11 PM CDT [facility] CREATININE, BLOOD 0.25(L) 0.80 - 1.30 mg/dL 09/22/2018 1:11 PM CDT [facility] BUN/CREATININE RATIO 60(H) 12 - 20 ratio 09/22/2018 1:11 PM CDT [facility] TOTAL PROTEIN 7.7 6.0 - 8.3 g/dL 09/22/2018 1:11 PM CDT [facility] ALBUMIN 3.1(L) 3.5 - 5.2 g/dL 09/22/2018 1:11 PM CDT [facility] Comment: The colormetric methods used for the determination of Albumin may lead to falsely elevated test results in patients suffering from renal failure or insufficiency due to interference with other proteins. A/G RATIO 0.7(L) 1.0 - 2.0 09/22/2018 1:11 PM CDT [facility] CALCIUM 9.2 8.9 - 10.3 mg/dL 09/22/2018 1:11 PM CDT [facility] T BILI 16.6(HH) <=1.2 mg/dL 09/22/2018 1:11 PM CDT [facility] SGOT (AST) 164(H) <=40 U/L 09/22/2018 1:11 PM CDT [facility] SGPT (ALT) 149(H) <=41 U/L 09/22/2018 1:11 PM CDT [facility] ALKALINE PHOSPHATASE 795(H) 40 - 130 U/L 09/22/2018 1:11 PM CDT [facility] GFR, EST. NONAFRICAN >60 >=60 09/22/2018 1:11 PM CDT [facility] GFR, EST. >60 >=60 019 1:11 PM CDT [facility] Comment: Creatinine Clearance is the preferred criteria for selecting drug dose adjustments in renally impaired patients. The GFR is provided as additional pertinent clinical information. GFR is reported in mL/min/1.73 sq m. Blood specimen (specimen) Venous Catheter (IV) / Unknown 09/22/2018 12:15 PM CDT 09/22/2018 12:28 PM CDT Chan Hernandez MD CHEMISTRY ORDERABLES Final Result [facility] [address] [place] [address] from Last 3 Months or Most Recently Relevant to Health Maintenance Insurance MEDICAID [employer] Care Teams Payroll And Benefits Specialist Relationship Specialty Start Date End Date Brielle Garcia APRN, ASSEMBLER [employer] [address] [place] [address] PCP - General Family Medicine 05/20/21
[2024-08-17 11:16] LABS: Creatinine Urine 178.5 mg/dL
[2024-08-17 14:04] LABS: MALB Creatinine Ratio < 3.4 mg/g (0-30); Microalbumin Urine Random < 6.0 mg/L (0-16.7)
== END 2024-08-17 10:10 | disposition home or self-care (01) ==
LOC: ANHLAB 10:10
PROVIDERS: PCP Nurse Practitioner Family; Visit Provider Internal Medicine Endocrinology, Diabetes & Metabolism
DX: E11.9 Type 2 diabetes mellitus without complications (principal); E29.1 Testicular hypofunction; R79.89 Other specified abnormal findings of blood chemistry; Z68.43 Body mass index [BMI] 50.0-59.9, adult
CPT/HCPCS: 82043

== ENCOUNTER 2025-02-12 09:34 | Outpatient (CLI) | payer MEDICAID, SELFPAY ==
--- NOTE | ~2025-02-12 | MM_ITS ---
EXAMINATION: MM diagnostic [facility] BI w jairo INDICATION: 54-year old MALE; follow up bilateral gynecomastia. COMPARISON: 02/12/2022 TECHNIQUE: Digital breast tomosynthesis CC and MLO views of the BILATERAL breast were obtained with computer-aided detection to assist in interpretation of the study. FINDINGS: The breasts are almost entirely fatty.There is small volume of fibroglandular tissue in BILATERAL breast compatible with gynecomastia. There are no other suspicious masses, calcifications, architectural distortion or any other abnormality in BILATERAL breast. IMPRESSION: FINDINGS COMPATIBLE WITH GYNECOMASTIA HAS NOT SIGNIFICANTLY CHANGED IN THE INTERVAL. RECOMMENDATION: CLINICAL MANAGEMENT BI-RADS 2, BENIGN Reviewed, dictated and finalized at location C. IMPRESSION: FINDINGS COMPATIBLE WITH GYNECOMASTIA HAS NOT SIGNIFICANTLY CHANGED IN THE INTE RVAL. RECOMMENDATION: CLINICAL MANAGEMENT BI-RADS 2, BENIGN
--- OUTSIDE RECORDS SUMMARY | 2025-02-12 10:39 | XMS_ITS | Clinical Summary ---
Author Organization [facility] Address [address] [place] [address] Care Team Providers Care Merchandise Manager Name Role Phone Brielle Garcia JOYCELYN Primary Care Provider [phone] Source Comments [facility],non-owned Affiliates and Associated Physician Practices is amultiple site organization consisting of ambulatory clinics and hospital sitesin [place], [place]. This disclosure is being madepursuant to the Care Everywhere program and may not contain all information available regarding this patient. Last updated 18.[facility] Allergies No known active allergies Medications * Be aware that medications may not be up to date on this document. Alwaysverify current medications with the patient. melatonin 3 MG tablet Take 3 mg [...] meal 180 tablet 4 10/03/2018 Active lisinopril (PRINIVIL;ZESTR IL) 5 MG tablet Take 5 mg by mouth once daily Active Active Problems Problem Noted Date Diagnosed Date S/P laparoscopic cholecystectomy 10/19/2018 Resolved Problems Problem Noted Date Diagnosed Date Resolved Date Acute pancreatitis 09/22/2018 05/16/201 9 Family History Medical History Relation Name [...] at Not on file Legal Sex Male 3:49 PM CDT Gender Identity Not on file [...] 10/03/2021 9, 10/03/2018, 10/03/2018, Additional history exists DEPRESSION SCREENING 06/06/2024 COVID-19 VACCINE (1 - 2023-25 season) 2025 INFLUENZA VACCINE (#1) 2025 HIB VACCINE Aged Out No longer eligi [...] 7 - 26 mg/dL 10/03/2018 6:12 AM [facility] Creatinine 0.8 0.6 - 1.2 mg/dL 10/03/2018 6:12 AM [facility] Sodium 138 136 - 145 mmol/L 10/03/2018 6:12 AM [facility] Potassium 3.9 3.5 - 4.5 mmol/L 10/03/2018 6:12 AM [facility] Chloride 101 98 - 107 mmol/L 10/03/2018 6:12 AM [facility] CO2 27 22 - 29 mmol/L 10/03/2018 6:12 AM [facility] Glucose 156(H) 70 - 115 mg/dL 10/03/2018 6:12 AM [facility] Calcium 9.0 8.4 - 10.2 mg/dL 10/03/2018 6:12 AM [facility] Anion Gap 14 8 - 18 10/03/2018 6:12 AM [facility] BUN/Creatinine Ratio 10 7 - 23 10/03/2018 6:12 AM [facility] Osmolality Calculated 288 270 - 300 mOsm/kg 10/03/2018 6:12 AM [facility] eGFR >60 >60 mL/min/1.7 3 m2 10/03/2018 6:12 AM CDT [facility] Blood BLOOD SPECIMEN / Unknown Lab Venipuncture / Unknown 10/03/2018 5:29 AM CDT 10/03/2018 5:54 AM CDT Loco Burroughs MD LAB - CHEMISTRY ORDERABLES Final Result Performing Organization Address City/State/[place] Co de Phone Number [facility] [address] [phone] from Last 3 Months or Most Recently Relevant to Health Maintenance Insurance [facility] SELF PAY NO INSURANCE Member Subscriber Plan / Payer (Ef fective for All Dates) Name:Margie Schaffer Member ID:Not on file Relation to Subscriber:Self Name:Margie Schaffer Subscriber ID:Not on file Payer ID:Not on file Group ID:Not on file Type:Self Pay Address: [place], [place] Advance Directives * Full Code (Latest Code Status on File) Date Activated Date Inactivated Comments 09/22/2018 9:05 PM 10/03/2018 2:50 PM * Full Code Date Activated Date Inactivated Comments 09/22/2018 9:02 PM 09/22/2018 9:05 PM Care Teams Merchandise Manager Relationship Specialty Start Date End Date Radha, TAVO Hannah-KASSY [address] [place] [address] [place] [id number] PCP - General Nurse Practitioner Family 09/22/18
--- OUTSIDE RECORDS SUMMARY | 2025-02-12 10:39 | XMS_ITS | Clinical Summary ---
Author Organization [facility] Address [address] [place] [address] Phone Care Team Providers Care Abalone Processor Name Role Phone Garcia Brielle VO CNP Primary Care Provider [phone] -[phone] Allergies No known active allergies Medications metroNIDAZOLE [...] 1970 Hepatitis C Virus (HCV) Screening 1970 Hepatitis B Immunization (1 of 3 - 19+ 3-dose series) 1989 Pneumococcal Immunization (5 0+ years) (1 of 2 - PCV) 1989 Cologuard 11/22/2015 Colonoscopy 11/22/2015 Colorectal Cancer Screening 11/22/2015 Immunochemical Fecal Occult Blood 11/22/2015 Diabetes: Nephropathy Screening 09/23/2019 09/22/2018, 09/13/2018 Zoster Immunization (1 of 2) 2020 SARS-COV-2 Immunization (3 - 2023- season) 2024 05/07/2021, 08/09/2020 Influenza Immunization (#1) 2025 Respiratory Syncytial Virus (RSV) Immunization (Adult) (1 - 1-dose 75+ series) 2045 DTaP/Tdap/Td Immunization Discontinued 2018, 11/09/2006 Human Papillomavirus (HPV) Immunization Aged Out No longer eligible based on patient's age to complete this topic Meningococcal Immunization (ACWY) Aged Out No longer [...] - 144 mmol/L 09/22/2018 1:11 PM CDT [facility] POTASSIUM 3.9 3.5 - 5.1 mmol/L 09/22/2018 1:11 PM CDT [facility] CHLORIDE 89(L) 100 - 110 mmol/L 09/22/2018 1:11 PM CDT [facility] CO2, VENOUS 23 22 - 32 mmol/L 09/22/2018 1:11 PM CDT [facility] ANION GAP 18.9 8.0 - 20.0 mmol/L 09/22/2018 1:11 PM CDT [facility] GLUCOSE 325(H) 70 - 99 mg/dL 09/22/2018 1:11 PM CDT [facility] BUN 15 6 - 20 mg/dL 09/22/2018 1:11 PM CDT [facility] CREATININE, BLOOD 0.25(L) 0.80 - 1.30 mg/dL 09/22/2018 1:11 PM CDT [facility] BUN/CREATININE RATIO 60(H) 12 - 20 ratio 09/22/2018 1:11 PM CDT [facility] TOTAL PROTEIN 7.7 6.0 - 8.3 g/dL 09/22/2018 1:11 PM CDT [facility] ALBUMIN 3.1(L) 3.5 - 5.2 g/dL 09/22/2018 1:11 PM CDT [facility] Comment: The colormetric methods used for the determination of Albumin may lead to falsely elevated test results in patients suffering from renal failure or insufficiency due to interference with other proteins. A/G RATIO 0.7(L) 1.0 - 2.0 09/22/2018 1:11 PM CDT [facility] CALCIUM 9.2 8.9 - 10.3 mg/dL 09/22/2018 1:11 PM CDT [facility] T BILI 16.6(HH) <=1.2 mg/dL 09/22/2018 1:11 PM CDT [facility] SGOT (AST) 164(H) <=40 U/L 09/22/2018 1:11 PM CDT [facility] SGPT (ALT) 149(H) <=41 U/L 09/22/2018 1:11 PM CDT [facility] ALKALINE PHOSPHATASE 795(H) 40 - 130 U/L 09/22/2018 1:11 PM CDT [facility] GFR, EST. NONAFRICAN >60 >=60 09/22/2018 1:11 PM CDT [facility] GFR, EST. >60 >=60 019 1:11 PM CDT [facility] Comment: Creatinine Clearance is the preferred criteria for selecting drug dose adjustments in renally impaired patients. The GFR is provided as additional pertinent clinical information. GFR is reported in mL/min/1.73 sq m. Blood specimen (specimen) Venous Catheter (IV) / Unknown 09/22/2018 12:15 PM CDT 09/22/2018 12:28 PM CDT us Chan Hernandez MD CHEMISTRY ORDERABLES Final Result [facility] [address] [place] [address] from Last 3 Months or Most Recently Relevant to Health Maintenance Insurance [employer] Care Teams Abalone Processor Relationship Specialty Start Date End Date Brielle Garcia APRN, KASSY PCP - General Family Medicine 05/20/21
== END 2025-02-12 09:35 | disposition home or self-care (01) ==
PROVIDERS: PCP Nurse Practitioner Family; Visit Provider Internal Medicine Endocrinology, Diabetes & Metabolism
DX: E29.1 Testicular hypofunction (principal)
CPT/HCPCS: 77062; 77066; G0279